=== PATIENT | male | born 1965 | race Caucasian/White ===

== ENCOUNTER 2020-07-05 07:13 | Emergency (ER) | payer OTHER, SELFPAY ==
[2020-07-05] VITALS (34 sets, daily range): BP systolic 109–154; BP diastolic 73–99; PULSE 81–99; RESP 10–21; TEMP 36.5; O2SAT 94–98
--- OUTSIDE RECORDS SUMMARY | 2020-07-05 07:44 | XMS_ITS | Encounter Summary ---
:1965 Author Organization [facility] Address [address] [place] [address] Care Team Providers Name Role Phone BRIDGETTE BRO Primary Care Provider Unavailable BRIDGETTE BRO Primary Care Provider Unavailable Insurance Providers: All historical and current Section Date Range: From patient's date of to the date document was created.This section includes the names of all active insurance providers for the patient. Insurance Type of Plan Start of End of Group Member Insurance Policy P atient's Provider Coverage Name Policy Policy Number ID Provider's Bejarano's Relationship Coverage Coverage Telephone Name to Policy Number Bejarano ANTH HIGH ADP Apr 19, [id number] [phone] [place] NICE PATIENT BCBS OF DEDUCTIBL TOTAL 2018 [id number] K NEW E [facility] PLAN E [place]IGH ADP Apr 19, [id number] [phone] [place] NICE PATIENT (BLUECARD) DEDUCTIBL TOTAL 2019 14 [id number] K E HEALTH SOUR PLAN E W/HEALTH SAVINGS ACCOUNT INGENIO RX PRESCRIPT HP Apr 19, [id number] [phone] MILAGRO COLLADO PATIENT ION (PCN: [id number] K WK) Selected Encounter This section includes the information on record at CT for the Encounter. Date/Time Encounter Type Encounter Reason Provider Source Description Jun 29, 2020 Outpatient MENTAL HEALTH ICD-10-CM RAMIRO YIP 02:00 PM Encounter CLINIC - IND F43.12 A K Post-traumatic stress disorder, chronic with Provider Comments: Chronic post-traumatic stress disorder ([facility] [id number]) IHE Encounter Template Text not used by VA Assessments - Encounter Diagnoses This section includes the primary and secondary diagnoses documented forthe Encounter. Date/Time Primary/Secondary Diagnosis Name Provider Source Diagnosis Jun 29, 2020 PRIMARY Post-traumatic RAMIRO YIPBU [facility] 03:42 PM stress disorder, A K CBOC chronic Jun 29, 2020 SECONDARY Major depressive RAMIRO YIP [place] 03:42 PM disorder, single A K CBOC episode, unspecified Plan of Treatment: Future Appointments (+ 6 months) and Future Tests (+/- 45 days) The Plan of Treatment section includes future care activities for the patient from all [place] treatment facilities. This section includes future appointments and future orders which are active, pending or scheduled.Future Appointments This section includes appointments that were scheduled to occur 6 months from the date of the Encounter, up to a maximum of 20 appointments. [facility] Appointment Date/Time Appointment Type Appointment Facili ty Name Jul 06, 2020 02:00 PM AMBULATORY - PS[facility]CHIATRY [facility] Jul 27, 2020 02:00 PM AMBULATORY - MEDICINE [facility] Jul 27, 2020 04:00 PM AMBULATORY - PSYCHIATRY [facility] Nov 09, 2020 10:00 AM AMBULATORY - MEDICINE [facility] Social History: Smoking Status (Most current) and Tobacco Use (All prior to encounter date) This section includes the most current, and the historical, smoking and tobacco-related health factors from the [place] facility where the Encounter took place.Current Smoking Status This section includes the most current smoking, or tobacco-related health factor, from the [place] facility where the Encounter took place. Date/Time Current Smoking Status Comment Facility Jun 06, 2019 01:09 PM [facility] Tobacco Use History This section includes a history of the smoking, or tobacco-related health factors, that were collected on or before the date of the Encounter. The data comes from the [place] facility where the Encounter took place. Date/Time Smoking Status/Tobacco Use Comment [facility] Jun 30, 2018 02:13 PM VA-TOBACCO NEVER USED [facility] Jun 29, 2015 08:32 AM LIFETIME NON-TOBACCO USER [facility] Sep 09, 2005 03:14 PM QUIT TOBACCO USE > 7 YEARS [facility] quit at age 22 Encounter Notes: All associated encounter notes This section contains the clinical notes associated to the Encounter. Date/Time Encounter Note(s) Provider Source Jun 29, 2020 02:00 PM MENTAL HEALTH COUNSELING NOTE: ANDREINA YIP [facility] LOCAL TITLE: Psychotherapy/Mental Health STANDARD TITLE: MENTAL HEALTH COUNSELING NOTE DATE OF NOTE: JUN 29, 2020@14:00 ENTRY DATE: JUN 29, 2020@15:33:16 AUTHOR: JOON YIP EXP COSIGNER: URGENCY: STATUS: COMPLETED [facility] Video Connect appointment: Provider confirmed that is currently loc ated at the following address listed in their CPRS chart. [address] [place] [address] e-911: Call [phone] to speak with an agent who can put you in touch with a transportation maintenance operator at the Patient's location. Y ou must have the physical location (address) where the Patient is currentl y located. Verbal informed consent has been obtained. Cognitive Processing Therapy: Trauma Event Sessi on Time in session (in minutes): 45 minutes SESSION NUMBER: 5 SESSION FORMAT Video Telehealth Session SESSION LOCATION [place] residence - Other DIAGNOSIS: Primary (focus of treatment): PTSD, MDD ASSESSMENT: PCL-5 A PCL-5 was performed and was negative. The score was 18. PHQ-9 A PHQ-9 screen was performed. The score was 7 which is suggestive of mild depression. CHANGE IN SCORE (PCL or PHQ9) CHANGES IN ASSESSMENT SC ORES FROM EARLIER ADMINISTRATIONS: Scores continue to drop, notes overall feeling better an d more confident in managing stressful thoughts/memories. RISK INFORMATION: Denies current suicidal ideat ion, intent, planning or behaviors. Endorses and family as strong pr otective factors risk is low. SESSION CONTENT: The [place] completed the Trauma Event session of Cognitive Processing Therapy (CPT) for PTSD. The following therapy components were addressed: -Therapist had [place] read the trauma account aloud. [place] shared narrative appropriately. Notes feeling readin g it is easier today since he has reviewed it often. -Therapist helped the Vete ran go through the trauma account to identify stuck points using Socratic Questioning. -Therapist helped [place] connect feelings to thoughts. had difficulty identifying feelings and thoughts i n narrative. -Therapist collected trauma account from Veter an. PRACTICE ASSIGNMENT -Therapist asked [place] to rewrite th e trauma account and to continue using the A-B-C Worksheets, completing at least one each day. PLAN: Cont. CPT sessions weekly, vvc. Denies SI/ HI/, has noted some morbid ruminations at times in the context of distressi ng memories but reports being able to manage feelings and change his focus. A damantly denies any planning, intent or behaviors. Risk is low. RTC 07/06/20 @ 1400 VVC /es/ JEY L[address] Diamond Die Driller Signed: 06/29/2020 15:43 Receipt Acknowledged By: * AWAITING SIGNATURE * KARIN DIAZ * AWAITING SIGNATURE * PEARL GARCIA * AWAITING SIGNATURE * CAROLYNE QUINN
--- OUTSIDE RECORDS SUMMARY | 2020-07-05 07:44 | XMS_ITS ---
:1965 Author Organization [facility] Address [address] [place] [address] Care Team Providers Name Role Phone BRIDGETTE [...] Number Bejarano ANTH HIGH ADP Apr 19, [id number] [phone] [place] NICE PATIENT BCBS OF DEDUCTIBL TOTAL 2019 [id number] K NEW E [facility] PLAN E [place] Apr 19, [id number] [phone] [place] NICE PATIENT (BLUECARD) DEDUCTIBL TOTAL 2019 14 [id number] K E HEALTH SOUR PLAN E W/HEALTH SAVINGS ACCOUNT INGENIO RX PRESCRIPT [facility] Apr 19, [id number] [phone] MILAGRO COLLADO PATIENT ION (PCN: [id number] 6 K WK) Selected Encounter This section includes the information on record at [facility] for the Encounter. Date/Time Encounter Type Encounter Description Reason Provider Source Jun 27, 2020 09:20 Outpatient Encounter ADMIN PAT ACTIVTIES AM (MASNONCT) IHE Encounter Template Text not used by VA Plan of Treatment: Future Appointments (+ 6 months) and Future Tests (+/- 45 days) The Plan of Treatment section includes future care activities for the patient from all [place] treatment facilities. This section includes future appointments and future orders which are active, pending or scheduled.Future Appointments This section includes appointments that were scheduled to occur 6 months from the date of the Encounter, up to a maximum of 20 appointments. The data comes from all [facility]. Appointment Date/Time Appointment Type Appointment Facili ty Name Jun 29, 2020 02:00 PM AMBULATORY - PSYCHIATRY [facility] Jul 06, 2020 02:00 PM AM[facility] [place] [facility] [place] [facility] Jul 27, 2020 02:00 PM AMBULATORY - MEDICINE [facility] Jul 27, 2020 04:00 PM AMBULATORY - PSYCHIATRY [facility] Nov 09, 2020 10:00 AM AMBULATORY - MEDICINE [facility] Social History: Smoking Status (Most current) and Tobacco Use (All prior to encounter date) This section includes the most current, and the historical, smoking and tobacco-related health factors from the [place] facility where the Encounter took place.Current Smoking Status This section includes the most current smoking, or tobacco-related health factor, from the [place] facility where the Encounter took place. Date/Time Current Smoking Status [facility] Aug 15, 2016 03:42 PM LIFETIME NON-TOBACCO USER [facility] Encounter Notes: All associated encounter notes This section contains the clinical notes associated to the Encounter. 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 fax: /es/ NICK TINEO Religious Education Director Signed: 06/27/2020 09:22 Receipt Acknowledged By: 06/27/2020 09:28 /denis/ KUSHAL LUNA RPSGT 06/27/2020 ADDENDUM STATUS: COMPLETED Emailed to [id number] for forwarding. /denis/ KUSHAL LUNA RPSGT Signed: 06/27/2020 09:29 06/27/2020 ADDENDUM STATUS: COMPLETED Document successfully faxed to destination. /denis/ NICK TINEO Religious Education Director Signed: 06/27/2020 09:47
--- OUTSIDE RECORDS SUMMARY | 2020-07-05 07:44 | XMS_ITS | Encounter Summary ---
:1965 Author Organization [facility] Address [address] [place] [address] Care Team Providers Name Role Phone BRIDGETTE [...] Number Bejarano ANTH HIGH ADP Apr 19, [id number] [phone] [place] NICE PATIENT BCBS OF DEDUCTIBL TOTAL 2018 14 [id number] K NEW E [facility] PLAN E [place] ADP Apr 19, [id number] [phone] [place] NICE PATIENT (BLUECARD) DEDUCTIBL TOTAL 2019 14 [id number] K E HEALTH SOUR PLAN E W/HEALTH SAVINGS ACCOUNT INGENIO RX PRESCRIPT HP Apr 19, [id number] [phone] MILAGRO COLLADO PATIENT ION (PCN: [id number] 6 K WK) Selected Encounter This section includes the information on record at [place] for the Encounter. Date/Time Encounter Type Encounter Reason Provider Source Description Jun 01, 2020 Outpatient MENTAL HEALTH ICD-10-CM RAMIRO YIP 02:00 PM Encounter CLINIC - IND F43.12 A K Post-traumatic stress disorder, chronic with Provider Comments: Chronic post-traumatic stress disorder ([facility] [id number]) IHE Encounter Template Text not used by VA Assessments - Encounter Diagnoses This section includes the primary and secondary diagnoses documented forthe Encounter. Date/Time Primary/Secondary Diagnosis Name Provider Source Diagnosis Jun 03, 2020 PRIMARY Post-traumatic FISCAL OFFICER [place]arlon [place] 08:41 AM stress disorder, CBOC chronic Jun 03, 2020 SECONDARY Major depressive [facility] [place] [facility] 08:41 AM disorder, single CBOC episode, unspecified Plan of Treatment: Future Appointments (+ 6 months) and Future Tests (+/- 45 days) The Plan of Treatment section includes future care activities for the patient from all [place] treatment facilities. This section includes future appointments and future orders which are active, pending or scheduled.Future Appointments This section includes appointments that were scheduled to occur 6 months from the date of the Encounter, up to a maximum of 20 appointments. The [facility] [place] [facility] Appointment Date/Time Appointment Type Appointment Facili ty Name Jun 08, 2020 02:00 PM AMBULATORY - [place] [facility] Jun 22, 2020 02:00 PM AMBULATORY - [place] [facility] Jun 29, 2020 02:00 PM AMBULATORY - [place]ATRY [place] [facility] Jul 06, 2020 02:00 PM AMBULATORY - [place]RY [place] [facility] Jul 27, 2020 02:00 PM AM[place]ORY [place]IC[place] [facility] Jul 27, 2020 04:00 PM AMBULATORY - [place]ATRY [place] [facility] Nov 09, 2020 10:00 AM AM[place]ORY [place] [facility] Social History: Smoking Status (Most current) and Tobacco Use (All prior to encounter date) This section includes the most current, and the historical, smoking and tobacco-related health factors from the [place] facility where the Encounter took place.Current Smoking Status This section includes the most current smoking, or tobacco-related health factor, from the [facility] facility where the Encounter took place. Date/Time Current Smoking Status Comment Facility Jun 06, 2019 01:09 PM VA-TOBACCO [facility]ED [facility] Tobacco Use History This section includes a history of the smoking, or tobacco-related health factors, that were collected on or before the date of the Encounter. The data comes from the [place] facility where the Encounter took place. Date/Time Smoking Status/Tobacco Use Comment Facil ity Jun 30, 2018 02:13 PM VA-TOBACCO NEVER USED [facility] Jun 29, 2015 08:32 AM LIFETIME NON-TOBACCO USER [facility] Sep 09, 2005 03:14 PM QUIT TOBACCO USE > 7 YEARS [facility] AGO quit at age 22 Encounter Notes: All associated encounter notes This section contains the clinical notes associated to the Encounter. Date/Time Encounter Note(s) Provider Source Jun 01, 2020 02:00 PM MENTAL HEALTH COUNSELING NOTE: ANDREINA YIP [facility] LOCAL TITLE: Psychotherapy/Mental Health STANDARD TITLE: MENTAL HEALTH COUNSELING NOTE DATE OF NOTE: JUN 01, 2020@14:00 ENTRY DATE: JUN 03, 2020@08:04:57 AUTHOR: JOON YIP EXP COSIGNER: URGENCY: STATUS: COMPLETED [facility] Video Connect appointment: Provider confirmed that [place] is currently loc ated at the following address listed in their CPRS chart. [facility], [place] [address] e-911: Call [phone] to speak with an agent who can put you in touch with a staple shear operator at the Patient's location. Y ou must have the physical location (address) where the Patient is currentl y located. Verbal informed consent has been obtained. Cognitive Processing Therapy: Meaning Session Time in session (in minutes): 55 SESSION NUMBER: 2 SESSION FORMAT Video Telehealth Session SESSION LOCATION [place] residence - Other VVC DIAGNOSIS: Primary (focus of treatment): PTSD ASSESSMENT: MENTAL STATUS/BEHAVIORAL OBSERVATIONS: [place] denies current suicidal ideation, intent , planning or behaviors. Endorses and dog as strong protecti ve factors in addition to help seeking and future orientated planning. Risk is low. SESSION CONTENT: The completed the Meaning of the Event session of Cognitive Processing Therapy (CPT) for PTSD. The followi ng therapy components were addressed: -The and therapist reviewed the Stuck Point Help Sheet and started the Stuck Point Log. -Therapist had [place] read their Impact State ment. -Discussed the meaning of the Impact S tatement with the [place] with a focus on identifying stuck points. -Therapist collected Impact Statement from Karthik weber. -Therapist introduced rela tionships between thoughts, feelings, and behaviors. -Therapist and reviewed the Identifyin g Emotions Handout. -Therapist introduced the A-B-C Worksheets and demonstrated how to complete them in session. PRACTICE ASSIGNMENT: -Therapist assigned practice assignment to com plete at least one A-B-C Worksheet each day. -Therapist asked the [place] to continue to ad d to the Stuck Point Log. PLAN: Weekly CPT sessions vi a VVC. Complete homework assignments and review next session. Denies SI/HI/, risk is low. RTC 06/08/20 @ 1400 VVC Homelessness/Food Insecurity Screen: In the past 2 months, have you been living in stable housing that you own, rent, or stay in as part of a househo ? Yes - Living in stable housing. Are you worried or c oncerned that in the next 2 months you may NOT have stable housing that you own, rent, or st ay in as part of a household? No - Not worried about housing near [facility] In the past three months did you ever run out of food and you were not able to access more food or have the money to buy more food? No - No Food shortage /es/ JOON YIP LOADING RACK SUPERVISOR Cut To Length Operator Signed: 06/03/2020 08:41
--- OUTSIDE RECORDS SUMMARY | 2020-07-05 07:44 | XMS_ITS | Encounter Summary ---
:1965 Author Organization [facility] Address [address] [place] [id number] Care Team Providers Name Role Phone BRIDGETTE [...] Number Bejarano ANTH HIGH ADP Apr 19, [id number] [phone] MIL[place]RO NICE PATIENT BCBS OF DEDUCTIBL TOTAL 2018 14 [id number] K NEW E [facility] PLAN E [place] HIGH ADP Apr 19, [id number] [phone] MILAGRO NICE PATIENT (BLUECARD) DEDUCTIBL TOTAL 2019 14 [id number] 3 K E HEALTH SOUR PLAN E W/HEALTH SAVINGS ACCOUNT INGENIO RX PRESCRIPT HP Apr 19, [id number] [phone] MILAGRO COLLADO PATIENT ION (PCN: [id number] 6 K WK) Selected Encounter This section includes the information on record at [place] for the Encounter. Date/Time Encounter Type Encounter Reason Provider Source Description May 25, 2020 Outpatient MENTAL HEALTH ICD-10-CM RAMIRO YIP 01:00 PM Encounter CLINIC - IND F43.12 A K Post-traumatic stress disorder, chronic with Provider Comments: Chronic post-traumatic stress disorder ([facility] [id number]) IHE Encounter Template Text not used by [facility] Assessments - Encounter Diagnoses This section includes the primary and secondary diagnoses documented forthe Encounter. Date/Time Primary/Secondary Diagnosis Name Provider Source Diagnosis May 25, 2020 PRIMARY Post-traumatic RAMIRO YIPBU RY 01:47 PM stress disorder, A K [facility] chronic May 25, 2020 SECONDARY Major depressive RAMIRO YIP BURY 01:47 PM disorder, single A K [facility] episode, unspecified Plan of Treatment: Future Appointments (+ 6 months) and Future Tests (+/- 45 days) The Plan of Treatment section includes future care activities for the patient from all [place] treatment facilities. This section includes future appointments and future orders which are active, pending or scheduled.Future Appointments This section includes appointments that were scheduled to occur 6 months from the date of the Encounter, up to a maximum of 20 appointments. The [facility] [place] [facility] Appointment Date/Time Appointment Type Appointment Facili ty Name Jun 01, 2020 11:00 AM AMBULATORY [place] [facility] Jun 01, 2020 02:00 PM AM[facility] [place] [facility] Jun 08, 2020 02:00 PM AM[facility] [place] [facility] Jun 22, 2020 02:00 PM AM[facility] [place] [facility] Jun 29, 2020 02:00 PM AM[facility]ORY [place] [facility] Jul 06, 2020 02:00 PM AM[facility]ULATORY [place] [facility] Jul 27, 2020 02:00 PM [place] [facility] Jul 27, 2020 04:00 PM AM[facility]ORY [place] [facility] Nov 09, 2020 10:00 AM [place] [facility] Social History: Smoking Status (Most current) and Tobacco Use (All prior to encounter date) This section includes the most current, and the historical, smoking and tobacco-related health factors from the [facility] facility where the Encounter took place.Current Smoking Status This section includes the most current smoking, or tobacco-related health factor, from the [facility] facility where the Encounter took place. Date/Time Current Smoking Status Comment Facility Jun 06, 2019 01:09 PM VA-TOBACCO NEVER USED [facility] Tobacco Use History This section includes a history of the smoking, or tobacco-related health factors, that were collected on or before the date of the Encounter. The data comes from the [place] facility where the Encounter took place. Date/Time Smoking Status/Tobacco Use Comment Tani mcallister Jun 30, 2018 02:13 PM VA-TOBACCO NEVER USED [facility] Jun 29, 2015 08:32 AM LIFETIME NON-TOBACCO USER [facility] Sep 09, 2005 03:14 PM QUIT TOBACCO USE > 7 YEARS [facility] AGO quit at age 22 Encounter Notes: All associated encounter notes This section contains the clinical notes associated to the Encounter. Date/Time Encounter Note(s) Provider Source May 25, 2020 01:36 PM MENTAL HEALTH COUNSELING NOTE: ANDREINA YIP [facility] LOCAL TITLE: Psychotherapy/Mental Health STANDARD TITLE: MENTAL HEALTH COUNSELING NOTE DATE OF NOTE: MAY 25, 2020@13:36 ENTRY DATE: MAY 25, 2020@13:36:51 AUTHOR: JOON YIP EXP COSIGNER: URGENCY: STATUS: COMPLETED Cognitive Processing Therapy: Initial Session Time in session (in minutes): 45 SESSION NUMBER: 1 SESSION FORMAT Video Telehealth Session SESSION LOCATION [facility] DIAGNOSIS: Primary (focus of treatment): PTSD Secondary (if applicable): MDD ASSESSMENT: Date Instrument Ra w Trans Scale 05/18/2020 10:20 PCL-5 3 9 PCL-5 4 Cluster B 8 Cluster C 1 9 Cluster D 8 Cluster E 10/03/2014 08:15 PC PTSD 2 PC PTSD Total Date Instrument Ra w Trans Scale 05/18/2020 10:20 PHQ9 8 PHQ9 07/03/2017 15:17 PHQ9 3 PHQ9 PCL-5 A PCL-5 was performed and was positive. The score was 47. PHQ-9 A PHQ-9 screen was performed. The score was 7 which is suggestive of mild depression. CHANGE IN SCORE (PCL or PHQ9) CHANGES IN ASSESSMENT SCORES FROM EARLIER AD MINISTRATIONS: Warren reports symptoms have increased since deciding t o address past traumatic experiences. Since I have been thinking about it more, I have noticed I'm more avoidant and hypervigilant RISK INFORMATION: denies current suici [place] ideation, intent, planning or beliefs. Warren endorses past hx o f SI. Does have access to lethal means (firearms) in the home, reports the y are secured safely in the home, no acute safety concerns. Endorsed multip le protective factors. Risk is low. MENTAL STATUS/BEHAVIORAL OBSERVATIONS; engaged , pleasant and alert and oriented x 3 SESSION CONTENT: The completed the first session of Cog nitive Processing Therapy (CPT) for PTSD. The following therapeutic components were addressed: -Facilitated a good therapeutic relationship. The following elements were utilized to help establish a collaborative, po sitive working relationship with the [place]: Discussed barriers and liana rns re; treatment, can end treatment if so desired. -Reviewed and signed treatment agreement conse nt form. -Provided an overview of PTSD symptoms, a cogn itive explanation of the development and maintenance of PTSD, and a rat ionale of CPT. -Presented the with an overview of the 12-session treatment. -Discussed 's readiness to engage in tr eatment. -Discussed and addressed 's questions o r concerns about treatment. expressed the following questions and/ or concerns: what if symptoms get worse Discussed learning adequate coping skills to manage distressing feelings, resources to access formerly named [facility] PTSD college coach trudi and crisis line -Asked the to describe a brief account of their most traumatic event. notes 3 events that he feels acc ount for his trauma. Noted feeling more anxious when discussing these. 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 Notes having intense physical reactions after the events adrenaline dump shaking, crying uncontrollably -Introduced the concept of stuck points. PRACTICE ASSIGNMENT: -Asked to write a one page Impact Sta tement. -Asked to review Stuck Point Handout a nd Stuck Point Help Sheet. PLAN Next session planned for agreed upon date/time of: 06/01/20 @ 1400 [facility] Warren denies SI/HI/, endorses multiple prot ective factors, risk is low. /denis/ JOON YIP FLARER C D Area Supervisor Signed: 05/25/2020 13:47 Receipt Acknowledged By: * AWAITING SIGNATURE * KARIN DIAZ
--- OUTSIDE RECORDS SUMMARY | 2020-07-05 07:44 | XMS_ITS | Encounter Summary ---
:1965 Author Organization [facility] Address [address] [place] [address] Care Team Providers Name Role Phone BRIDGETTE [...] Number Bejarano ANTH HIGH ADP Apr 19, [id number] [phone] MILAGRO NICE PATIENT BCBS OF DEDUCTIBL TOTAL 2018 14 [id number] K NEW E [facility] PLAN [place] Apr 19, [id number] [phone] MIL[place]RO NICE PATIENT (BLUECARD) DEDUCTIBL TOTAL 2019 14 [id number] 3 K E HEALTH [employer] PLAN E W/HEALTH SAVINGS ACCOUNT INGENIO RX PRESCRIPT HP Apr 19, [id number] [phone] MILAGRO COLLADO PATIENT ION (PCN: [id number] 6 K WK) Selected Encounter This section includes the information on record at [place] for the Encounter. Date/Time Encounter Type Encounter Reason Provider Source Description Jun 08, 2020 Outpatient TELEPHONE ICD-10-CM RAMIRO YIP 03:08 PM Encounter F43.12 A K Post-traumatic stress disorder, chronic with Provider Comments: Chronic post-traumatic stress disorder ([facility] [id number]) IHE Encounter Template Text not used by [facility] Assessments - Encounter Diagnoses This section includes the primary and secondary diagnoses documented forthe Encounter. Date/Time Primary/Secondary Diagnosis Name Provider Source Diagnosis Jun 08, 2020 PRIMARY Post-traumatic RAMIRO YIPBU RY 03:08 PM stress disorder, A K [facility] chronic Jun 08, 2020 SECONDARY Major depressive RAMIRO YIP BURY 03:08 PM disorder, single A K [facility] episode, unspecified Plan of Treatment: Future Appointments (+ 6 months) and Future Tests (+/- 45 days) The Plan of Treatment section includes future care activities for the patient from all [place] treatment facilities. This section includes future appointments and future orders which are active, pending or scheduled.Future Appointments This section includes appointments that were scheduled to occur 6 months from the date of the Encounter, up to a maximum of 20 appointments. The [facility] [place] [facility] Appointment Date/Time Appointment Type Appointment Facili ty Name Jun 22, 2020 02:00 PM AM[facility]ORY [place] [facility] Jun 29, 2020 02:00 PM AM[facility] [place] [facility] Jul 06, 2020 02:00 PM AM[facility] [place] [facility] Jul 27, 2020 02:00 PM [place] [facility] Jul 27, 2020 04:00 PM AM[facility] [place] [facility] Nov 09, 2020 10:00 AM [place] [facility] Social History: Smoking Status (Most [...] 06, 2019 01:09 PM VA-TOBACCO NEVER USED [facility] Tobacco Use History This section includes a history of the smoking, or tobacco-related health factors, that were collected on or before the date of the Encounter. The data comes from the [place] facility where the Encounter took place. Date/Time Smoking Status/Tobacco Use Comment Facil it Jun 30, 2018 02:13 PM VA-TOBACCO NEVER USED [facility] Jun 29, 2015 08:32 AM LIFETIME NON-TOBACCO USER [facility] Sep 09, 2005 03:14 PM QUIT [facility] quit at age 22 Encounter Notes: All associated encounter notes This section contains the clinical notes associated to the Encounter. Date/Time Encounter Note(s) Provider Source Jun 08, 2020 03:08 PM MENTAL HEALTH TELEPHONE ENCOUNTER NOTE: JOON COLON [facility] LOCAL TITLE: Telephone Note/Mental Health STANDARD TITLE: MENTAL HEALTH TELEPHONE ENCOUNTE R NOTE DATE OF NOTE: JUN 08, 2020@15:08 ENTRY DATE: JUN 08, 2020@15:08:21 AUTHOR: JOON YIP EXP COSIGNER: URGENCY: STATUS: COMPLETED Visit was completed via phone as this writers VV C was unable to connect Cognitive Processing Therapy: A-B-C Worksheet Se ssion Time in session (in minutes): 45 SESSION NUMBER: 3 SESSION FORMAT Telephone session SESSION LOCATION residence - Other phone DIAGNOSIS: Primary (focus of treatment): PTSD ASSESSMENT: PCL-5 A PCL-5 was performed and was negative. The score was 21. CHANGE IN SCORE (PCL or PHQ9) CHANGES IN ASSESSMENT SCORES FROM EARLIER AD MINISTRATIONS: [place] reports marked relief in symptoms ove r past week as evidenced by scores. RISK INFORMATION: Denies current suicidal idea tion, intent, planning or behaviors. Endorses and family as strong pr otective factors risk is low. SESSION CONTENT: The [place] completed the Thoughts and Feeling s Session of the Cognitive Processing Therapy (CPT) for PTSD. The followi ng therapy components were addressed: -Therapist reviewed homework (A-B-C Worksheets ) with , and helped further differentiate between thoughts and fee lings. -Therapist helped identify stuck point s and add them to the Stuck Point Log. -Therapist helped the [place] to begin to chal lenge problematic thoughts using Socratic Questioning. -Therapist introduced the trauma narrative and discussed the issue of avoidance. PRACTICE ASSIGNMENT -Therapist asked to continue using the A -B-C Worksheets, completing one each day. PLAN Cont. weekly sessions using CPT to reduce sympt oms of PTSD and address avoidance. Denies SI/HI/, risk is low RTC 06/22/20 @ 1400 [facility] /es/ JEY L[address] Manager Water Signed: 06/08/2020 15:15 Receipt Acknowledged By: * AWAITING SIGNATURE * KARIN DIAZ * AWAITING SIGNATURE * PEARL GARCIA * AWAITING SIGNATURE * CAROLYNE QUINN Jun 08, 2020 02:00 PM NO SHOW NOTE: JOON YIP [facility] LOCAL TITLE: Mental Health No Show/Clinic Cance l/Conversion Note STANDARD TITLE: NO SHOW NOTE DATE OF NOTE: JUN 08, 2020@14:00 ENTRY DATE: JUN 08, 2020@15:18:56 AUTHOR: JOON YIP EXP COSIGNER: URGENCY: STATUS: COMPLETED MENTAL HEALTH NO SHOW/CLINIC CANCELLATION/CLINIC CONVERSION NOTE Appointment Date & Time: May@14:00 ACTION: Provider attempted to reach [place] to d iscuss: No Show Cancellation by clinic Cancellation by (X) Conversion of clinic appointment REASON: for no show or clinic cancel/reschedule: Unable to use [facility] converted to phone OUTCOME: Reached and Clinic rescheduled to: [facility] Clinic (X) Telephone Clinic Face to Face Clinic New clinic appointment date/time: 's email address: Left [place] voicemail message: Any Acute Safety Concerns? No If Yes, Action Taken or Further Follow-up: Co-sign MSAs at location to this note to take a ction on the clinic appt and add any additional instructi ons to MSA group. Please cancel [facility] appt as unable to connect, thi s magnetic tape typewriter operator created ALEXANDRA appt for phone 06/08 @ 1400, note/encounter completed. /denis/ JOON YIP GI ASST Manager Water Signed: 06/08/2020 15:20 Receipt Acknowledged By: * AWAITING SIGNATURE * KARIN DIAZ * AWAITING SIGNATURE * PEARL GARCIA * AWAITING SIGNATURE * CAROLYNE QUINN
--- OUTSIDE RECORDS SUMMARY | 2020-07-05 07:44 | XMS_ITS | Encounter Summary ---
:1965 Author Organization Department [facility] rs Address [address] [place] [address] Care Team Providers Name Role Phone BRIDGETTE [...] Number Bejarano ANTH HIGH ADP Apr 19, [id number] [phone] MILAGRO TREVIÑO PATIENT BCBS OF DEDUCTIBL TOTAL 2018 14 [id number] K NEW E [facility]ALTH [facility] PLAN E [place] HIGH ADP Apr 19, [id number] [phone] MILARGO TREVIÑO PATIENT (BLUECARD) DEDUCTIBL TOTAL 2019 14 [id number] K E HEALTH [employer] PLAN E W/HEALTH SAVINGS ACCOUNT INGENIO RX PRESCRIPT HDHP Apr 19, [id number] [phone] MILAGRO COLLADO PATIENT ION (PCN: [id number] K WK) Selected Encounter This section includes the information on record at [place] for the Encounter. Date/Time Encounter Type Encounter Reason Provider Source Description Jun 01, 2020 Outpatient TELEPHONE DARREL ICD-10-CM DOROTHEA ZHU 11:00 AM Encounter F43.12 Post-traumatic stress disorder, chronic with Provider Comments: Chronic post-traumatic stress disorder ([facility] [id number]) IHE Encounter Template Text not used by VA Assessments - Encounter Diagnoses This section includes the primary and secondary diagnoses documented forthe Encounter. Date/Time Primary/Secondary Diagnosis Name Provider Source Diagnosis Jun 01, 2020 PRIMARY Post-traumatic DOROTHEA ZHU 11:00 AM stress disorder, [facility] chronic Jun 01, 2020 SECONDARY Major depressive DOROTHEA ZHU 11:00 AM disorder, single [facility] episode, unspecified Plan of Treatment: Future Appointments (+ 6 months) and Future Tests (+/- 45 days) The Plan of Treatment section includes future care activities for the patient from all [place] treatment facilities. This section includes future appointments and future orders which are active, pending or scheduled.Future Appointments This section includes appointments that were scheduled to occur 6 months from the date of the Encounter, up to a maximum of 20 appointments. The data comes from all [facility]. Appointment Date/Time Appointment Type Appointment Facili ty Name Jun 08, 2020 02:00 PM AMBULATORY - [place] [facility] Jun 22, 2020 02:00 PM AM[facility]ORY [place] [facility] Jun 29, 2020 02:00 PM AMBULATORY - [place] [facility] Jul 06, 2020 02:00 PM AMBULATORY - [place] [facility] Jul 27, 2020 02:00 PM [facility] [place] [facility] Jul 27, 2020 04:00 PM AMBULATORY - [place] [place] [facility] Nov 09, 2020 10:00 AM AMBULATORY - MEDICINE [facility] Social History: Smoking Status (Most [...] place. Date/Time Current Smoking Status Comment Facility Aug 15, 2016 03:42 PM LIFETIME NON-TOBACCO USER [facility]ITE [facility] Encounter Notes: All associated encounter notes This section contains the clinical notes associated to the Encounter. Date/Time Encounter Note(s) Provider Source Jun 01, 2020 11:16 AM MENTAL HEALTH TREATMENT PLAN NOTE: MARKO[facility] LOC[facility] TITLE: Mental Health Treatment Plan [facility] STANDARD TITLE: MENTAL HEALTH TREATMENT PLAN NOT E DATE OF NOTE: JUN 01, 2020@11:16 ENTRY DATE: JUN 01, 2020@11:17:39 AUTHOR: DOROTHEA ZHU EXP COSIGNER: URGENCY: STATUS: COMPLETED DATE/TIME PATIENT ENTERED TREATMENT: 10/23/2014 10:27:27 AM MENTAL HEALTH TREATMENT PLAN - May, @ 11 :16 AM Visit Date: May, @ 11:00 - JODI ROJO MD PH ONE TREATMENT PLAN TYPE: Update PRIMARY CLINIC OR PROGRAM: Outpatient Care CLINICS OR PROGRAMS: Outpatient Care [employer]WR[employer] INSTRUCTOR: DOROTHEA ZHU / DARREL [facility] 1 TEAM MEMBERS: DOROTHEA ZHU: PHYSICIAN JOON YIP: MAINTENANCE COORDINATOR RISK ASSESSMENT (DANGER TO SELF AND OTHERS): Low risk PATIENT'S PERCEPTION OF NEEDS AND PREFERENCES: I need to keep my job PATIENT'S STRENGTHS/ABILITIES: Insightful - aware of illness Expressed desire/motivation for change Employed or has income/benefits Has supportive family and/or friends Capable of [place] Able to maintain IADLs Good Hygiene PATIENT'S BARRIERS TO CARE: none PATIENT PARTICIPATION IN TREATMENT PLANNING: MET WITH PROVIDER. PATIENT AGREED TO PLAN (draft) DISCUSSED. FAMILY PARTICIPATION IN TREATMENT PLANNING: PATIENT'S FAMILY NOT AVAILABLE. MENTAL HEALTH DIAGNOSES AND RELEVANT MEDICAL CON DITIONS: Depressive disorder ([facility] [id number]) Chronic post-traumatic stress disorder ([facility] [id number]) MEDICATIONS: FLUOXETINE HCL 40MG CAP - Sig: TAKE ONE CAPSULE BY MOUTH EVERY DAY FOR DEPRESSION AND ANXIETY - Outpatient - Status : ACTIVE - Refills: 3 - Issued: 03/02/2020 - Last filled: 05/03/2020 - Expires: 03/03/2021 BUSPIRONE HCL 10MG TAB - Sig: TAKE ONE TABLET B Y MOUTH TWICE A DAY FOR ANXIETY - Outpatient - Status: PENDING - Ref ills: N/A - Issued: N/A - Last filled: N/A - Expires: N/A TREATMENT PLAN: PROBLEM: Problem/Need: [DEPRESSION]: I am experi encing depressive symptoms that include: feeli ng down and angry. GOAL: I want to decrease depression and impr ove mood. OBJECTIVE: I will take medications as prescr ibed to feel better in the following areas low mood, ang er/irritability. Improvement will be measured thro [facility] in-office assessment and self-report Projec mike Completion Date: 06/03/2020 INTERVENTION: [MEDICATION MANAGEMENT] My provider will prescribe medication to manage my sy mptoms and monitor my response. Provider Type: P sychiatrist Name: DOROTHEA ZHU: ANNY UPDATED/RESOLVED/INACTIVATED PROBLEMS & COMMENTS : ACTIVE PROBLEM: Problem/Need: [DEPRESSION]: I am experiencing depressive symptoms that include : feeling down and angry. ACTIVE OBJECTIVE: I will take medications as prescribed to feel better in the following areas low mo od, anger/irritability. Improvement will be measur ed through in-office assessment and self-report Comments: HISTORICAL OBJEC TIVE: I will take medications as p rescribed to feel better in the following ar eas low mood, anger/irritabili ty. Improvement will be measured through in-office assessment and self-report. PHQ < 8 06/03/2019 (by DOROTHEA ZHU) HISTORICAL OBJEC TIVE: I will take medications as p rescribed to feel better in the following ar eas low mood, anger/irritabili ty. Improvement will be measured through in-office assessment and self-report. PHQ < 8 06/03/2019 (by DOROTHEA ZHU) HISTORICAL OBJEC TIVE: I will take medications as p rescribed to feel better in the following ar eas low mood, anger/irritabili ty. Improvement will be measured through in-office assessment and self-report. 06/03/2019 (by DOROTHEA ZHU) PLAN RENEWAL DATE: 06/01/2021 /denis/ Dorothea Zhu MD Psychiatrist Signed: 06/01/2020 11:17 Receipt Acknowledged By: * AWAITING SIGNATURE * JOON YIP Jun 01, 2020 10:56 AM MENTAL HEALTH TELEPHONE ENCOUNTER NOTE: DOROTHEA MCKENZIE [facility] LOCAL TITLE: Telephone Note/Mental Health [facility] STANDARD TITLE: MENTAL HEALTH TELEPHONE ENCOUNTE R NOTE DATE OF NOTE: JUN 01, 2020@10:56 ENTRY DATE: JUN 01, 2020@10:56:57 AUTHOR: DOROTHEA ZHU EXP COSIGNER: URGENCY: STATUS: COMPLETED MENTAL HEALTH TELEPHONE NOTE Date and time of visit: JUN 01, 2020 1100 Duration: 16 min IDENTIFICATION: Name: TREVIÑO,SUSU CARMENCITA J R Age: 54 Service connection: SERVICE CONNECTED % - 80 Primary Care Provider: CHIEF COMPLAINT: Follow-up for depression, anxiety, PTSD HISTORY OF PRESENT ILLNESS: Mr. Treviño has in the interim started individual psychotherapy. He has been trying to learn more about P TSD since he has started therapy. he has learned more, he is now seeing more and more sx that he has experienced which he did not recognize before. He reports that he has been doing better. [employer] has been starting to help and he is generally feeling calmer. He has also decided to go to a different job and that decision in and of itself made him feel better. He will be going back to his previous job for the same company and it is reassuring that he kno ws what to expect. That took a lot of stress off of his mind. Severity of stress is n ow minimal. He looks forward to seeing his family in the fut ure. Isolation due to the pandemic has been difficult for them. Side-effects to psychiatric medications: none Review of Systems: Psychiatric: per HPI. Constitutional: Sleep - fine. Energy - okay mo st of the time, dose have occasional day he feels really tired. Appetite - good. MENTAL HEALTH HISTORY: SUBSTANCE USE HISTORY: Recent Use: Alcohol: infrequent Tobacco: none Other Substances: none [place]UM[place]IA SUICIDE SCREEN: Questions applicable to the period of time betwe en visits: 1. No Have you wished you were or wished y ou could go to sleep and not wake up? 2. No Have you actually had any thoughts of kil ling yourself? 6. No Have you done anything, started to do any thing, or prepared to do anything to end your life ? Assessment of Suicide Risk (low, medium, high): Low acute risk based on current report of sympto ms MEDICAL INFORMATION: Active problems - Computerized Problem List is t he source for the followin. Chronic post-traumatic stress disorder 2. Depressive disorder 3. Sleep apnea 4. MDD, Recur, NOS 5. Cough 6. Depressive disorder 7. Egdar Schlatter Disease 8. Hyperlipidemia (SNOMED CT [id number]) 9. Environmental Allergies 10. GERD - Gastro-esophageal reflux disease (SNO MED CT [id number]) RECENT LABORATORY STUDIES: Labs (14 Days) No data available MEDICATIONS: Active Outpatient Medications (excluding Supplie s): Active Outpatient Medications Status 1) ATORVASTATIN CALCIUM 20MG TAB TAKE ONE TABL ET BY ACTIVE MOUTH EVERY DAY TO LOWER CHOLESTEROL 2) BUSPIRONE HCL 10MG TAB TAKE ONE TABLET BY M OUTH TWICE ACTIVE A DAY FOR ANXIETY 3) CAPSAICIN 0.025% CREAM APPLY SMALL AMOUNT T OPICALLY ACTIVE TWICE DAILY NEEDED FOR LOCALIZED PAIN 4) FLUOXETINE HCL 40MG CAP TAKE ONE CAPSULE BY MOUTH ACTIVE EVERY DAY FOR DEPRESSION AND ANXIETY 5) LORATADINE 10MG TAB TAKE ONE TABLET BY MOUT H EVERY ACTIVE DAY FOR ALLERGIES 6) OMEPRAZOLE 20MG EC CAP TAKE ONE CAPSULE BY MOUTH ACTIVE TWICE A DAY FOR GASTROESOPHAGEAL REFLUX D ISEASE MEDICATION RECONCILIATION: Reviewed VA medications and [facility]. Were the medications correct and being taken trudi ropriately? ALLERGIES: SIMVASTATIN MENTAL STATUS EXAM: Appearance: not assessed due to phone visit Behavior: cooperative, engageable, talkative, s ounds brighter Speech: normal rate and volume, clear, coherent , normal prosody Language: fluent Mood/Affect: good; mildly dysthymic, constricted, appropriate, mood congruent affect Thought Processes: linear, logical, goal-direct ed Associations: no loosening Thought Content: no evidence of hallucinations or delusions, denies current suicidal or violent/homicidal ideation Insight: good Judgment: good Gait: not assessed due to phone visit Fund of Knowledge: appropriate Attention/Concentration: Alert and attentive Summary and Diagnostic Impression/Formulation: Mr. Treviño is a 54 yo vet wit h recurrent major depression (mild), anxiety, PTSD. He is doing better today given dissipation of a good part of his external stress. He is hopeful about the future, optimistic about the outcome of trauma focused therapy. TREATMENT PLAN: - cont fluoxetine, buspirone as above - cont individual therapy Follow-up appointment(s): NLT RTC - Jul 27 - 4:00 PM - phone Alcohol Use Screen (AUDIT-C) & F/U: Alcohol Screen: SCREEN FOR ALCOHOL (AUDIT-C) An alcohol screening test (AUDIT-C ) was negative (score=1). 1. How often did you have a drink containing alcohol in the past year? Monthly or less 2. How many drinks containing alco hol did you have on a typical day when you were drinking in the past year? 1 or 2 3. How often did you have six or m ore drinks on one occasion in the past year? Never Date Instrument Raw Trans Scale 06/03/2019 11:00 AUDC 1 Total /es/ Dorothea Zhu MD Psychiatrist Signed: 06/01/2020 11:21
--- OUTSIDE RECORDS SUMMARY | 2020-07-05 07:44 | XMS_ITS | Encounter Summary ---
:1965 Author Organization [facility] Address [address] [place] [address] Care Team Providers Name Role Phone BRIDGETTE [...] Number Bejarano ANTH HIGH ADP Apr 19, [id number] [phone] MILAGRO NICE PATIENT BCBS OF DEDUCTIBL TOTAL 2018 14 [id number] K NEW E [facility]ALTH [facility] PLAN E [place] HIGH ADP Apr 19, [id number] [phone] MILAGRO NICE PATIENT (BLUECARD) DEDUCTIBL TOTAL 2019 14 [id number] K E HEALTH [place] PLAN E W/HEALTH SAVINGS ACCOUNT INGENIO RX PRESCRIPT HP Apr 19, WL9A [id number] [phone] MILAGRO COLLADO PATIENT ION (PCN: [id number] K WK) Selected Encounter This section includes the information on record at [place] for the Encounter. Date/Time Encounter Type Encounter Reason Provider Source Description Jun 22, 2020 Outpatient MENTAL HEALTH ICD-10-CM RAMIRO YIP 02:00 PM Encounter CLINIC - IND F43.12 A K Post-traumatic stress disorder, chronic with Provider Comments: Chronic post-traumatic stress disorder ([facility] [id number]) IHE Encounter Template Text not used by VA Assessments - Encounter Diagnoses This section includes the primary and secondary diagnoses documented forthe Encounter. Date/Time Primary/Secondary Diagnosis Name Provider Source Diagnosis Jun 22, 2020 PRIMARY Post-traumatic RAMIRO YIPBU RY 03:18 PM stress disorder, [facility] chronic Jun 22, 2020 SECONDARY Major depressive RAMIRO YIP BURY 03:18 PM disorder, single [facility] episode, unspecified Plan of Treatment: Future Appointments (+ 6 months) and Future Tests (+/- 45 days) The Plan of Treatment section includes future care activities for the patient from all [place] treatment facilities. This section includes future appointments and future orders which are active, pending or scheduled.Future Appointments This section includes appointments that were scheduled to occur 6 months from the date of the Encounter, up to a maximum of 20 appointments. The [facility] [place] [facility] Appointment Date/Time Appointment Type Appointment Facili ty Name Jun 29, 2020 02:00 PM AMBULATORY - [place] [place] [facility] Jul 06, 2020 02:00 PM AM[facility]AT[facility] - [facility]AT[facility] [place] [facility] Jul 27, 2020 02:00 PM [place] [place] [facility] Jul 27, 2020 04:00 PM AMBUL[facility]ORY - [facility]ATRY [place] [facility] Nov 09, 2020 10:00 AM [facility] [place] [facility] Social History: Smoking Status (Most current) and Tobacco Use (All prior to encounter date) This section includes the most current, and the historical, smoking and tobacco-related health factors from the [place] facility where the Encounter took place.Current Smoking Status This section includes the most current smoking, or tobacco-related health factor, from the [facility] facility where the Encounter took place. Date/Time Current Smoking Status Comment Facility Jun 06, 2019 01:09 PM VA-TOBACCO NEVER USED [facility] Tobacco Use History This section includes a history of the smoking, or tobacco-related health factors, that were collected on or before the date of the Encounter. The data comes from the [place] facility where the Encounter took place. Date/Time Smoking Status/Tobacco Use Comment [facility] Jun 30, 2018 02:13 PM VA-TOBACCO NEVER USED [facility] Jun 29, 2015 08:32 AM LIFETIME NON-TOBACCO USER [facility] Sep 09, 2005 03:14 PM QUIT TOBACCO USE > 7 YEARS [facility] quit at age 22 Encounter Notes: All associated encounter notes This section contains the clinical notes associated to the Encounter. Date/Time Encounter Note(s) Provider Source Jun 22, 2020 02:00 PM MENTAL HEALTH COUNSELING NOTE: ANDREINA YIP [facility] LOCAL TITLE: Psychotherapy/Mental Health STANDARD TITLE: MENTAL HEALTH COUNSELING NOTE DATE OF NOTE: JUN 22, 2020@14:00 ENTRY DATE: JUN 22, 2020@14:56:54 AUTHOR: JOON YIP EXP COSIGNER: URGENCY: STATUS: COMPLETED VA Video Connect appointment: Provider confirmed that is currently loc ated at the following address listed in their CPRS chart. [facility], [place] [address] e-911: Call [phone] to speak with an agent who can put you in touch with a clipper operator at the Patient's location. Y ou must have the physical location (address) where the Patient is currentl y located. Verbal informed consent has been obtained. Cognitive Processing Therapy: A-B-C Worksheet Se ssion Time in session (in minutes): 45 minutes SESSION NUMBER: 4 SESSION FORMAT Video Telehealth Session SESSION LOCATION Other location Specify: home tele DIAGNOSIS: Primary (focus of treatment): ptsd ASSESSMENT: PCL-5 A PCL-5 was performed and was negative. The score was 21. PHQ-9 A PHQ-9 screen was performed. The score was 9 which is suggestive of mild depression. RISK INFORMATION: Denies current suicidal idea tion, intent, planning or behaviors. Endorses and family as strong pr otective factors risk is low. SESSION CONTENT: The completed the Thoughts and Feeling s Session of the Cognitive Processing Therapy (CPT) for PTSD. The followi ng therapy components were addressed: -Therapist reviewed homework (A-B-C Worksheets ) with , and helped further differentiate between thoughts and fee lings. -Therapist helped identify stuck point s and add them to the Stuck Point Log. -Therapist helped the to begin to chal lenge problematic thoughts using Socratic Questioning. -Therapist introduced the trauma narrative and discussed the issue of avoidance. Therapist helped the Golden challenge inaccur ate thoughts about completing the trauma narrative for next session. PRACTICE ASSIGNMENT -Therapist asked Golden to write an account of their most traumatic event in detail. -Therapist asked to continue using the A-B-C Worksheets, completing one each day. PLAN Next session planned for agreed upon date/time of: 06/29/20 @ 1400 [facility] /es/ [address] Health And Safety Trainer Signed: 06/22/2020 15:18 Receipt Acknowledged By: * AWAITING SIGNATURE * KARIN DIAZ * AWAITING SIGNATURE * PEARL GARCIA * AWAITING SIGNATURE * CAROLYNE QUINN
--- OUTSIDE RECORDS SUMMARY | 2020-07-05 07:45 | XMS_ITS | Encounter Summary ---
:1965 Author Organization Department [facility] rs Address [address] [place] [address] Care Team Providers Name Role Phone BRIDGETTE [...] Number Bejarano ANTH HIGH ADP Apr 19, [id number] [phone] MILAGRO NICE PATIENT BCBS OF DEDUCTIBL TOTAL 2018 14 [id number] K NEW E [facility] PLAN E [place] ADP Apr 19, [id number] [phone] MILAGRO NICE PATIENT (BLUECARD) DEDUCTIBL TOTAL 2019 14 [id number] K E HEALTH [place] PLAN E W/HEALTH SAVINGS ACCOUNT INGENIO RX PRESCRIPT HDHP Apr 19, [id number] [phone] MILAGRO COLLADO PATIENT ION (PCN: [id number] K WK) Selected Encounter This section includes the information on record at [facility] for the Encounter. Date/Time Encounter Type Encounter Description Reason Provider Source Mar 02, 2020 09:43 Outpatient Encounter TELEPHONE TRIAGE AM IHE Encounter Template Text not used by VA Plan of Treatment: Future Appointments (+ 6 months) and Future Tests (+/- 45 days) The Plan of Treatment section includes future care activities for the patient from all [place] treatment facilities. This section includes future appointments and future orders which are active, pending or scheduled.Future Appointments This section includes appointments that were scheduled to occur 6 months from the date of the Encounter, up to a maximum of 20 appointments. The data comes from all [facility]. Appointment Date/Time Appointment Type Appointment Facili ty Name May 04, 2020 11:30 AM AMBULATORY [place] [facility] May 11, 2020 10:00 AM [place] [facility] May 18, 2020 10:00 AM AMBULATORY - [place]IATRY [place] [facility] May 25, 2020 01:00 PM AMBULATORY - [place]IATRY [place] [facility] Jun 01, 2020 11:00 AM AMBULATORY - [place]IATRY [place] [facility] Jun 01, 2020 02:00 PM AMBULATORY - [place]IATRY [place] [facility] Jun 08, 2020 02:00 PM AMBULATORY - [place]IATRY [place] [facility] Jun 22, 2020 02:00 PM AMBULATORY - [place]IATRY [place] [facility] Jun 29, 2020 02:00 PM AMBULATORY - [place]IATRY [place] [facility] Jul 06, 2020 02:00 PM AMBULATORY - [place]IATRY [place] [facility] Jul 27, 2020 02:00 PM [place] [facility] Jul 27, 2020 04:00 PM AMBULATORY - PS[place]CHIATRY [place] [facility] Social History: Smoking Status (Most current) [...] 2016 03:42 PM LIFETIME NON-TOBACCO USER [place] [facility] Encounter Notes: All associated encounter notes This section contains the clinical notes associated to the Encounter. Date/Time Encounter Note(s) Provider Source Mar 02, 2020 09:43 AM TELEPHONE ENCOUNTER NOTE: HARRISON ALLEN [place] [facility] LOCAL TITLE: [facility]IS[facility] MED RENEWAL STANDARD TITLE: TELEPHONE ENCOUNTER NOTE DATE OF NOTE: MAR 02, 2020@09:43:45 ENTRY DATE: MAR 02, 2020@09:44:38 AUTHOR: HARRISON ALLEN EXP COSIGNER: URGENCY: STATUS: COMPLETED Type of call: PRESCRIPTION UPDATE. PCMM Provider Info: No PACT assigned at any [place] location. [facility] [phone]: [facility] 1 ([facility]) Psychiatrist Sreedhar Cramer PHONE:[phone] PAGER:[phone] Caller Response: SENT TO SPECIALTY FOR F/U The patient, SUSU NICE JR ([phone]) called the call center. Comments: please renew and mail out FLUOXETINE Evaluation/Management Code: HC PRO PHONE CALL 5- 10 MIN ([phone]). Starting at: 03/02/2020 @ 9:43:45 AM Ending at: 03/02/2020 @ 9:44:18 AM Length: 0 minutes. Author: HARRISON ALLEN Caller Area: [facility] Chief Complaint: Not applicable to call. Class Code: Other specified counseling. Contact Phone Number: Patient's Email Address: /denis/ HARRISON ALLEN Advanced Operator Technician Signed: 03/02/2020 09:44 Receipt Acknowledged By: 03/02/2020 10:00 /denis/ Sreedhar Cramer MD Psychiatrist
--- OUTSIDE RECORDS SUMMARY | 2020-07-05 07:45 | XMS_ITS | Encounter Summary ---
:1965 Author Organization [facility] Address [address] [place] [id number] Care Team Providers Name Role Phone BRIDGETTE RBO Primary Care Provider Unavailable BRIDGETTE BRO Primary [...] Number Bejarano ANTH HIGH ADP Apr 19, [id number] [phone] MIL[place]RO NICE PATIENT BCBS OF DEDUCTIBL TOTAL 2018 14 [id number] K NEW E HEALTH [facility] PLAN E [place]BS [place] HIGH ADP Apr 19 [id number] [phone] MILAGRO NICE PATIENT (BLUECARD) DEDUCTIBL TOTAL 2019 14 [id number] K E HEALTH Contactually PLAN E W/HEALTH SAVINGS ACCOUNT INGENIO RX PRESCRIPT HP Apr 19, [id number] [phone] MILAGRO COLLADO PATIENT ION (PCN: [id number] 6 K WK) Selected Encounter This section includes the information on record at [place] for the Encounter. Date/Time Encounter Type Encounter Reason Provider Source Description May 11, 2020 Outpatient TELEPHONE/MEDICIN ICD-10-CM G47.30 ARTUR STRATTON 10:00 AM Encounter E Sleep apnea, unspecified with Provider Comments: Sleep apnea ([facility] [id number]) IHE Encounter Template Text not used by [facility] Assessments - Encounter Diagnoses This section includes the primary and secondary diagnoses documented forthe Encounter. Date/Time Primary/Secondary Diagnosis Name Provider Source Diagnosis May 11, 2020 PRIMARY Sleep apnea, KUSHAL LUNA 10:00 AM unspecified [facility] Plan of Treatment: Future Appointments (+ 6 months) and Future Tests (+/- 45 days) The Plan of Treatment section includes future care activities for the patient from all [place] treatment facilities. This section includes future appointments and future orders which are active, pending or scheduled.Future Appointments This section includes appointments that were scheduled to occur 6 months from the date of the Encounter, up to a maximum of 20 appointments. The data comes from all [facility]. Appointment Date/Time Appointment Type Appointment Facili ty Name May 18, 2020 10:00 AM AMBULATORY [facility] May 25, 2020 01:00 PM AM[facility]UL[facility] Jun 01, 2020 11:00 AM AM[facility] Jun 01, 2020 02:00 PM AM[facility]UL[facility] Jun 08, 2020 02:00 PM AM[facility] Jun 22, 2020 02:00 PM AM[facility] Jun 29, 2020 02:00 PM AM[facility]ULATORY [facility] Jul 06, 2020 02:00 PM AMBULATORY [facility] Jul 27, 2020 02:00 PM [facility] Jul 27, 2020 04:00 PM AMBULATORY - [facility]RY [facility] Nov 09, 2020 10:00 AM [facility] Social History: Smoking Status (Most [...] 2016 03:42 PM LIFETIME NON-TOBACCO USER [facility] Encounter Notes: All associated encounter notes This section contains the clinical notes associated to the Encounter. Date/Time Encounter Note(s) Provider Source May 11, 2020 10:06 AM PULMONARY TELEPHONE ENCOUNTER NOTE: KUSHAL GARCIA [facility] LOCAL TITLE: Telephone Note/[facility] STANDARD TITLE: PULMONARY TELEPHONE ENCOUNTER NO TE DATE OF NOTE: MAY 11, 2020@10:06 ENTRY DATE: MAY 11, 2020@10:06:58 AUTHOR: KUSHAL LUNA COSIGNER: URGENCY: STATUS: COMPLETED Diagnosis: JOSE Patient report: No complaints. PAP device type: ResMed AirSense 10 auto Pressure settings at download: 7-20 EPR 3 Update pressure settings: n/a Current mask: ResMed AirFit N20 Large Mask history and reason for change: n/a Usage 11/12/2019 - 05/09/2020 Usage days 180/180 days (100%) >= 4 hours 176 days (98%) < 4 hours 4 days (2%) Usage hours 1,256 hours 40 minutes Average usage (total days) 6 hours 59 minutes Average usage (days used) 6 hours 59 minutes Median usage (days used) 6 hours 44 minutes Total used hours (value since last reset - 05/09) 7,181 hours AirSense 10 AutoSet Serial number [id number] Mode AutoSet Min Pressure 7 cmH2O Max Pressure 20 cmH2O EPR Fulltime EPR level 3 Therapy Pressure - cmH2O Median: 10.6 95th percentile: 1 3.1 Maximum: 14.4 Leaks - L/min Median: 3.9 95th percentile: 14.1 Maximum: 24.0 Events per hour AI: 0.4 HI: 0.6 AHI: 1.0 Apnea Index Central: 0.0 Obstructive: 0.4 Unknow n: 0.0 RERA Index 0.1 Vasquez-Mariscal respiration (average duration per night) 0 minutes (0%) Assessment and Plan: [place] has excellent compl iance with minimal leak while achieving therapeutic results. Reminded of inst ructions on filter change schedule, cleaning, supplies, and use of distill ed water. Follow up PRN and annually. /denis/ KUSHAL LUNA RPSGT Signed: 05/11/2020 10:09
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
--- OUTSIDE RECORDS SUMMARY | 2020-07-05 07:45 | XMS_ITS | Encounter Summary ---
:1965 Author Organization [facility] rs Address [address] [place] [address] Care Team Providers Name Role Phone BRIDGETTE [...] Number Bejarano ANTH HIGH ADP Apr 19, [id number] [phone] MILAGRO TREVIÑO PATIENT BCBS OF DEDUCTIBL TOTAL 2018 14 [id number] K NEW E HEALTH [facility] PLAN E BCBS OF [place] HIGH ADP Apr 19 [id number] [phone] MILAGRO TREVIÑO PATIENT (BLUECARD) DEDUCTIBL TOTAL 2019 14 [id number] 3 K E HEALTH [employer] PLAN E W/HEALTH SAVINGS ACCOUNT INGENIO RX PRESCRIPT HDHP Apr 19, WL9A [id number] [phone] MILAGRO COLLADO PATIENT ION (PCN: [id number] 6 K WK) Selected Encounter This section includes the information on record at [place] for the Encounter. Date/Time Encounter Type Encounter Reason Provider Source Description May 04, 2020 Outpatient TELEPHONE ICD-10-CM F33.0 DOROTHEA ZHU 11:30 AM Encounter Major depressive disorder, recurrent, mild with Provider Comments: Major Depressive Disorder, Recurrent, Mild IHE Encounter Template Text not used by [facility] Assessments - Encounter Diagnoses This section includes the primary and secondary diagnoses documented forthe Encounter. Date/Time Primary/Secondary Diagnosis Name Provider Source Diagnosis May 04, 2020 PRIMARY Major depressive ADRIA TEJEDA KETAN ER 11:30 AM disorder, A T [facility] recurrent, mild Plan of Treatment: Future Appointments (+ 6 months) and Future Tests (+/- 45 days) The Plan of Treatment section includes future care activities for the patient from all [place] treatment facilities. This section includes future appointments and future orders which are active, pending or scheduled.Future Appointments This section includes appointments that were scheduled to occur 6 months from the date of the Encounter, up to a maximum of 20 appointments. The data comes from all [facility]. Appointment Date/Time Appointment Type Appointment Facili ty Name May 11, 2020 10:00 AM AMBULATORY [place] [facility] May 18, 2020 10:00 AM AMBULATORY [place] [facility] May 25, 2020 01:00 PM AMBULATORY - [place]ATRY [place] [facility] Jun 01, 2020 11:00 AM AMBULATORY - [place]RY [place] [facility] Jun 01, 2020 02:00 PM AMBULATORY - [place]RY [place] [facility] Jun 08, 2020 02:00 PM AMBULATORY [place]RY [place] [facility] Jun 22, 2020 02:00 PM AMBULATORY - [place]RY [place] [facility] Jun 29, 2020 02:00 PM AMBULATORY - [place]RY [place] [facility] Jul 06, 2020 02:00 PM AMBULATORY [place]RY [place] [facility] Jul 27, 2020 02:00 PM [place] [facility] Jul 27, 2020 04:00 PM AMBULATORY - [place]ATRY [place] [facility] Social History: Smoking Status (Most current) and [...] 03:42 PM LIFETIME NON-TOBACCO USER [place] [facility] Encounter Notes: All associated encounter notes This section contains the clinical notes associated to the Encounter. Date/Time Encounter Note(s) Provider Source May 04, 2020 11:30 AM MENTAL HEALTH TELEPHONE ENCOUNTER NOTE: DOROTHEA MCKENZIE [place] LOCAL TITLE: Telephone Note/Mental Health [facility] STANDARD TITLE: MENTAL HEALTH TELEPHONE ENCOUNTE R NOTE DATE OF NOTE: MAY 04, 2020@11:30 ENTRY DATE: MAY 04, 2020@11:30:24 AUTHOR: DOROTHEA ZHU EXP COSIGNER: URGENCY: STATUS: COMPLETED MENTAL HEALTH TELEPHONE NOTE Date and time of visit: MAY 04, 2020 1130 Duration: 22 min IDENTIFICATION: Name: SUSU TREVIÑO Age: 54 Service connection: SERVICE CONNECTED % - 80 Primary Care Provider: CHIEF COMPLAINT: Follow-up for depression, anxiety HISTORY OF PRESENT ILLNESS: Mr. Treviño reports things are mostly okay though not quite as good as they have been for a while. Recently he has noticed an occasional bad day at work for not a clear reason. 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 When this happens he can't remember very well what happened a fterwards. He can remember physically that his face feels numb, pressure in his head, he does not want to relate to anyone. This has several times over the past co uple of months. He has also talked to his brother who also served in [place]. Mr. Treviño describes a year of low-wells anxiety, being alert, hyperaware for his deployment. I spent sometime normalizing his experiences, acknowledging what he is going through and has gone through. He feels what he e xperiences is more physical and anxious rather than depressed. He does not watch war movies, plans not to watch YouTube videos of similar topics. Side-effects to psychiatric medications: none Review of Systems: Psychiatric: per HPI. MENTAL HEALTH HISTORY: SUBSTANCE USE HISTORY: Recent Use: Alcohol: 1-2 per drinks per month Tobacco: none Other Substances: none COLUMBIA SUICIDE [...] is t he source for the followin. Depressive disorder 2. Sleep apnea 3. MDD, Recur, NOS 4. Cough 5. Depressive disorder 6. [place] Schlatter Disease 7. Hyperlipidemia (SNOMED CT 71761000) 8. Environmental Allergies 9. GERD - Gastro-esophageal reflux disease (SNO MED CT 100308366) RECENT LABORATORY STUDIES: Labs (14 Days) No data available MEDICATIONS: Active Outpatient Medications (excluding Supplie s): Active Outpatient Medications Status 1) ATORVASTATIN CALCIUM 20MG TAB TAKE ONE TABL ET BY ACTIVE (S) MOUTH EVERY DAY TO LOWER CHOLESTEROL 2) CAPSAICIN 0.025% CREAM APPLY SMALL AMOUNT T OPICALLY ACTIVE TWICE DAILY NEEDED FOR LOCALIZED PAIN 3) FLUOXETINE HCL 40MG CAP TAKE ONE CAPSULE BY MOUTH ACTIVE EVERY DAY FOR DEPRESSION AND ANXIETY 4) LORATADINE 10MG TAB TAKE ONE TABLET BY MOUT H EVERY ACTIVE DAY FOR ALLERGIES 5) OMEPRAZOLE 20MG EC CAP TAKE ONE CAPSULE BY MOUTH ACTIVE TWICE A DAY FOR GASTROESOPHAGEAL REFLUX D ISEASE MEDICATION RECONCILIATION: Reviewed VA medications and non-VA medication wi th [place]. Were the medications correct and being taken trudi ropriately? ALLERGIES: SIMVASTATIN MENTAL STATUS EXAM: Appearance: not assessed due to phone visit Behavior: cooperative, engageable, talkative Speech: normal rate and volume, clear, coherent , normal prosody Language: fluent Mood/Affect: a bit anxious, dysthymic, constricted, appropriate, mood congruent affect Thought [...] wit h recurrent major depression (mild), anxiety, trauma or stressor related disorder (r/o PTSD). Today Mr. Treviño brings up low level persistent trauma related sy mptoms that he is embarrassed to be experiencing but which is a very common experience for vets. He will likely respond well to adjusting treatment to better target those. TREATMENT PLAN: - cont fluoxetine as above - discussed pharmacological options for trauma i ncluding change in current antidepressant, augmentation. He preferred to t ry augmentation first as fluoxetine has been helpful for depression (though trauma sx were still present when he took higher doses of fluoxetine) - discussed adding buspirone 10 mg BID, review ed common side-effects and risks and benefits and he consented to trial of that - discussed therapy as anoth er modality to address his sx and he was interested in that - therapy referral to [facility] Follow-up appointment(s): [facility] - Jun 01 - 11: 00 - phone /es/ Dorothea Zhu MD Psychiatrist Signed: 05/04/2020 12:17
--- OUTSIDE RECORDS SUMMARY | 2020-07-05 07:46 | XMS_ITS ---
:1965 Author Organization [facility] rs Address [address] [place] [address] Care Team Providers Name Role Phone BRIDGETTE [...] Number Bejarano ANTH HIGH ADP Apr 19, [id number] [phone] MILAGRO NICE PATIENT BCBS OF DEDUCTIBL TOTAL 2018 14 [id number] K NEW E HEALTH [facility] PLAN E [place] HIGH ADP Apr 19, [id number] [phone] MILAGRO NICE PATIENT (BLUECARD) DEDUCTIBL TOTAL 2018 14 [id number] 3 K E HEALTH [employer] PLAN E W/HEALTH SAVINGS ACCOUNT INGENIO RX PRESCRIPT [facility] Apr 19, WL9A [id number] [phone] MILAGRO COLLADO PATIENT ION (PCN: [id number] 6 K WK) Selected Encounter This section includes the information on record at [place] for the Encounter. Date/Time Encounter Type Encounter Reason Provider Source Description Oct 28, 2019 OFFICE OR OTHER MENTAL HEALTH ICD-10-CM Z00.00 IVA ZHU 11:00 AM OUTPATIENT VISIT CLINIC - IND Encntr for FOR THE general adult EVALUATION AND medical exam w/o MANAGEMENT OF AN abnormal findings ESTABLISHED with Provider PATIENT, THAT MAY Comments: NOT REQUIRE THE Encounter for PRESENCE OF A General Adult PHYSICIAN OR Medical OTHER QUALIFIED Examination HEALTH CARE without Abnormal PROFESSIONAL. Findings USUALLY, THE PRESENTING PROBLEM(S) ARE MINIMAL. TYPICALLY, 5 MINUTES ARE SPENT PERFORMING OR SUPERVISING THESE SERVICES. IHE Encounter Template Text not used by [place] Assessments - Encounter Diagnoses This section includes the primary and secondary diagnoses documented forthe Encounter. Date/Time Primary/Secondary Diagnosis Name Provider Source Diagnosis Nov 15, 2019 PRIMARY Encntr for MANAS [place] 10:45 AM general adult W [facility] medical exam w/o abnormal findings Plan of Treatment: Future Appointments (+ 6 months) and Future Tests (+/- 45 days) The Plan of Treatment section includes future care activities for the patient from all [place] treatment facilities. This section includes future appointments and future orders which are active, pending or scheduled.Future Appointments This section includes appointments that were scheduled to occur 6 months from the date of the Encounter, up to a maximum of 20 appointments. The data comes from all [facility]. Appointment Date/Time Appointment Type Appointment Facili ty Name Nov 11, 2019 11:30 AM AMBULATORY - NONE [facility] December 16, 2019 11:30 AM AMBULATORY - [facility]CHIATRY [facility] Feb 17, 2020 11:30 AM AMBULATORY - PSYCHIATRY [facility] Social History: Smoking Status (Most current) and Tobacco Use (All prior to encounter date) This section includes the most current, and the historical, smoking and tobacco-related health factors from the [place] facility where the Encounter took place.Current Smoking Status This section includes the most current smoking, or tobacco-related health factor, from the [place] facility where the Encounter took place. Date/Time Current Smoking Status Comment Facility Aug 15, 2016 03:42 PM LIFETIME NON-TOBACCO USER [facility] Encounter Notes: All associated encounter notes This section contains the clinical notes associated to the Encounter. Date/Time Encounter Note(s) Provider Source Oct 18, 2019 11:18 AM NO SHOW NOTE: DOROTHEA ZHU [facility] LOCAL TITLE: Mental Health No Show/Clinic Cance l/Conversion Note STANDARD TITLE: NO SHOW NOTE DATE OF NOTE: OCT 18, 2019@11:18 ENTRY DATE: OCT 18, 2019@11:18:08 AUTHOR: DOROTHEA ZHU COSIGNER: URGENCY: STATUS: COMPLETED MENTAL HEALTH NO SHOW/CLINIC CANCELLATION/CLINIC CONVERSION NOTE Appointment Date & Time: Oct@11:00 ACTION: Provider attempted to reach [facility] to d iscuss: No Show Cancellation by clinic Cancellation by [facility] (X) Conversion of clinic appointment REASON: for no show or clinic cancel/reschedule: Coronavirus situation OUTCOME: Reached [facility] and Clinic rescheduled to: [facility] (X) Telephone Clinic Face to Face Clinic New clinic appointment date/time: Oct@11 :00 [facility]'s email address: Left [facility] olga feng ge: left vet a message offering a choice of phone or [facility], also spoke with his who says he'll pro bably get back to me Any Acute Safety Concerns? No If Yes, Action Taken or Further Follow-up: Co-sign MSAs at location to this note to take a ction on the clinic appt and add any additional instructi ons to MSA group. /es/ Dorothea Zhu MD Psychiatrist Signed: 10/19/2019 10:25
--- OUTSIDE RECORDS SUMMARY | 2020-07-05 07:46 | XMS_ITS | Encounter Summary ---
:1965 Author Organization [facility] rs Address [address] [place] [address] Care Team Providers Name Role Phone BRIDGETTE [...] Number Bejarano ANTH HIGH ADP Apr 19, [id number] [phone] MILAGRO TREVIÑO PATIENT BCBS OF DEDUCTIBL TOTAL 2018 14 [id number] K NEW E HEALTH [facility] PLAN E [place] HIGH ADP Apr 19, [id number] [phone] MILAGRO TREVIÑO PATIENT (BLUECARD) DEDUCTIBL TOTAL 2019 14 [id number] K E HEALTH [employer] PLAN E W/HEALTH SAVINGS ACCOUNT INGENIO RX PRESCRIPT [facility] Apr 19, WL9A [id number] [phone] MILAGRO COLLADO PATIENT ION (PCN: [id number] 6 K WK) Selected Encounter This section includes the information on record at [place] for the Encounter. Date/Time Encounter Type Encounter Reason Provider Source Description December 16, 2019 Outpatient TELEPHONE ICD-10-CM F33.42 DOROTHEA ZHU 11:30 AM Encounter Major depressive disorder, recurrent, in full remission with Provider Comments: Major Depressive Disorder, Recurrent, in Full Remission IHE Encounter Template Text not used by [facility] Assessments - Encounter Diagnoses This section includes the primary and secondary diagnoses documented forthe Encounter. Date/Time Primary/Secondary Diagnosis Name Provider Source Diagnosis December 16, 2019 PRIMARY Major depressive MANAS [place] RI GERA 11:30 AM disorder, W T [facility] recurrent, in full remission December 16, 2019 PRIMARY Major depressive MANAS [place] GERA 11:30 AM disorder, W T [facility] recurrent, in full remission December 16, 2019 SECONDARY Anxiety disorder, MANAS [place] IVER 11:30 AM unspecified W [facility] Plan of Treatment: Future Appointments (+ 6 months) and Future Tests (+/- 45 days) The Plan of Treatment section includes future care activities for the patient from all [place] treatment facilities. This section includes future appointments and future orders which are active, pending or scheduled.Future Appointments This section includes appointments that were scheduled to occur 6 months from the date of the Encounter, up to a maximum of 20 appointments. The data comes from all [facility]. Appointment Date/Time Appointment Type Appointment Facili ty Name Feb 17, 2020 11:30 AM AM[place]ULATORY - [place] [facility] May 04, 2020 11:30 AM AMBULATORY - [place]IATRY [place] [facility] May 11, 2020 10:00 AM [place] [facility] May 18, 2020 10:00 AM AMBULATORY - [place]RY [place] [facility] May 25, 2020 01:00 PM AMBULATORY - [place]IATRY [place] [facility] Jun 01, 2020 11:00 AM AMBULATORY - [place]ATRY [place] [facility] Jun 01, 2020 02:00 PM AMBULATORY - [place]IATRY [place] [facility] Jun 08, 2020 02:00 PM AMBULATORY - [place]IATRY [place] [facility] Social History: Smoking Status (Most current) and [...] PM LIFETIME NON-TOBACCO USER [place] [facility] Encounter Notes: All associated encounter notes This section contains the clinical notes associated to the Encounter. Date/Time Encounter Note(s) Provider Source December 16, 2019 11:30 AM MENTAL HEALTH TELEPHONE ENCOUNTER NOTE: D[place]OTHEA [place]CKENZIE [place] LOCAL TITLE: Telephone Note/Mental [facility] STANDARD TITLE: MENTAL HEALTH TELEPHONE ENCOUNTE R NOTE DATE OF NOTE: DECEMBER 16, 2019@11:30 ENTRY DATE: DECEMBER 16, 2019@11:30:33 AUTHOR: DOROTHEA ZHU EXP COSIGNER: URGENCY: STATUS: COMPLETED MENTAL HEALTH TELEPHONE NOTE Date and time of visit: DECEMBER 16, 2019 1130 Duration: 8 min IDENTIFICATION: Name: SUSU TREVIÑO Age: 54 Service connection: SERVICE CONNECTED % - 80 Primary Care Provider: CHIEF COMPLAINT: Follow-up for depression, anxiety HISTORY OF PRESENT ILLNESS: Mr. Treviño reports he is doing pretty good, inna r than last visit when he was feeling pretty anxious but h as gotten through that. Anxiety is much better now. He is feeling much better an d believes previously the worrying was affecting his mood. Summer plans have changed and they have the camp er set up in their yard now. He continues to work and that is going well. Side-effects to psychiatric medications: possibl y eye blinking on occasion Review of Systems: Psychiatric: per HPI. Constitutional: Sleep - just fine. E nergy - better than he has experienced for a while. Appetite - good. Imm: He has had seasonal allergies MENTAL HEALTH HISTORY: SUBSTANCE USE HISTORY: Recent Use: Alcohol: very infrequent 1-2x per month 1-2 drin ks at most Tobacco: none Illicit Substances: none [place]UM[place] SUICIDE SCREEN: Questions applicable [...] NOS 4. Cough 5. Depressive disorder 6. 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 Hyperlipidemia (SNOMED CT [id number]) 8. Environmental Allergies 9. GERD - Gastro-esophageal reflux disease (SNO MED CT 906258654) RECENT LABORATORY STUDIES: Labs (14 Days) No [...] RECONCILIATION: Reviewed VA medications and non-VA medication [facility]. Were the medications correct and being taken trudi ropriately? ALLERGIES: SIMVASTATIN MENTAL STATUS EXAM: Appearance: not assessed due to phone visit Behavior: cooperative, engageable, talkative, i n good spirits Speech: normal rate and volume, clear, coherent , normal prosody Language: fluent Mood/Affect: good; euthymic, full, appropriat e, mood congruent affect Thought Processes: linear, logical, goal-direct ed Associations: no loosening Thought Content: no evidence of hallucinations or delusions, denies current suicidal or violent/homicidal ideation Insight: good Judgment: good Gait: not assessed due to phone visit Fund of Knowledge: appropriate Attention/Concentration: Alert and attentive Summary and Diagnostic Impression/Formulation: Mr. Treviño is a 54 yo vet with recurrent major de pression (full remission), anxiety. He is stable and d oing well at this time. He has adjusted well to the current pandemic and is in a comfortable space n ow. TREATMENT PLAN: - cont fluoxetine as above Follow-up appointment(s): [facility] February 16 - 11:30 - phone /es/ Dorothea Zhu MD Psychiatrist Signed: 12/16/2019 11:42
--- OUTSIDE RECORDS SUMMARY | 2020-07-05 07:46 | XMS_ITS | Encounter Summary ---
:1965 Author Organization [facility] Address [address] [place] [address] Care Team Providers Name Role Phone BRIDGETTE [...] Number Bejarano ANTH HIGH ADP Apr 19, [id number] [phone] MILAGRO NICE PATIENT BCBS OF DEDUCTIBL TOTAL 2018 14 [id number] K NEW E HEALTH [facility] PLAN E [place] HIGH ADP Apr 19, [id number] [phone] MILAGRO NICE PATIENT (BLUECARD) DEDUCTIBL TOTAL 2019 14 [id number] K E HEALTH [employer] PLAN E W/HEALTH SAVINGS ACCOUNT INGENIO RX PRESCRIPT [facility] Apr 19, [id number] [phone] MILAGRO COLLADO PATIENT ION (PCN: [id number] K WK) Selected Encounter This section includes the information on record at [place] for the Encounter. Date/Time Encounter Type Encounter Description Reason Provider Source Nov 11, 2019 12:00 Outpatient Encounter COMMUNITY CARE AM CONSULT IHE Encounter Template Text not used by [facility] Plan of Treatment: Future Appointments (+ 6 months) and Future Tests (+/- 45 days) The Plan of Treatment section includes future care activities for the patient from all [place] treatment facilities. This section includes future appointments and future orders which are active, pending or scheduled.Future Appointments This section includes appointments that were scheduled to occur 6 months from the date of the Encounter, up to a maximum of 20 appointments. The data comes from all [facility]. Appointment Date/Time Appointment Type Appointment Facili ty Name December 16, 2019 11:30 AM AMBULATORY - PS[facility]CHIATRY [facility] Feb 17, 2020 11:30 AM AMBULATORY - PSYCHIATRY [facility] May 04, 2020 11:30 AM AMBULATORY - PSYCHIATRY [facility] May 11, 2020 10:00 AM AMBULATORY - MEDICINE [facility] Social History: Smoking Status (Most current) and Tobacco Use (All prior to encounter date) This section includes the most current, and the historical, smoking and tobacco-related health factors from the [place] facility where the Encounter took place.Current Smoking Status This section includes the most current smoking, or tobacco-related health factor, from the [place] facility where the Encounter took place. Date/Time Current Smoking Status Comment Facility Aug 15, 2016 03:42 PM LIFETIME NON-TOBACCO USER [facility] Encounter Notes: All associated encounter notes This section contains the clinical notes associated to the Encounter. Date/Time Encounter Note(s) Provider Source Nov 11, 2019 12:00 AM NONVA CONSULT: EBONY ARSHAD [facility] LOCAL TITLE: COMMUNITY CARE CONSULT RESULT NOTE STANDARD TITLE: NONVA CONSULT DATE OF NOTE: NOV 11, 2019 ENTRY DATE: FEB 03, 2020@14:55:35 AUTHOR: EBONY ARSHAD EXP COSIGNER: URGENCY: STATUS: COMPLETED VistA Imaging - Scanned Document /denis/ EBONY ARSHAD Specialist Public Opinion Survey Taker Signed: 02/06/2020 07:12
--- OUTSIDE RECORDS SUMMARY | 2020-07-05 07:46 | XMS_ITS | Encounter Summary ---
:1965 Author Organization [facility] rs Address [address] [place] [address] Care Team Providers Name Role Phone BRIDGETTE [...] Number Bejarano ANTH HIGH ADP Apr 19, [id number] [phone] MILAGRO TREVIÑO PATIENT BCBS OF DEDUCTIBL TOTAL 2018 14 [id number] K NEW E [facility] PLAN E [place] HIGH ADP Apr 19, [id number] [phone] MILAGRO TREVIÑO PATIENT (BLUECARD) DEDUCTIBL TOTAL 2019 14 [id number] 3 K E HEALTH [email or web address] PLAN E W/HEALTH SAVINGS ACCOUNT INGENIO RX PRESCRIPT HDHP Apr 19, WL9A [id number] [phone] MILAGRO COLLADO PATIENT ION (PCN: [id number] 6 K WK) Selected Encounter This section includes the information on record at [place] for the Encounter. Date/Time Encounter Type Encounter Reason Provider Source Description Oct 28, 2019 Outpatient TELEPHONE ICD-10-CM F33.41 DOROTHEA ZHU 11:00 AM Encounter Major depressive disorder, recurrent, in partial remission with Provider Comments: Major Depressive Disorder, Recurrent, in Partial Remission IHE Encounter Template Text not used by VA Assessments - Encounter Diagnoses This section includes the primary and secondary diagnoses documented forthe Encounter. Date/Time Primary/Secondary Diagnosis Name Provider Source Diagnosis Oct 28, 2019 PRIMARY Major depressive MANAS [place]HE[place] RI GERA 11:00 AM disorder, [place] [facility] recurrent, in partial remission Oct 28, 2019 PRIMARY Major depressive MANAS [place] GERA 11:00 AM disorder, [place] [facility] recurrent, in partial remission Oct 28, 2019 PRIMARY Major depressive MANAS [place] GERA 11:00 AM disorder, single [place] VAOC episode, unspecified Oct 28, 2019 SECONDARY Anxiety disorder, MANAS ECHEVERRIA R IVER 11:00 AM unspecified W T [facility] Oct 28, 2019 SECONDARY Anxiety disorder, MANAS [place]HE[place]A R IVER 11:00 AM unspecified W T [facility] Oct 28, 2019 SECONDARY Anxiety disorder, MANAS [place]HEVERRIA R IVER 11:00 AM unspecified W T [facility] Oct 28, 2019 SECONDARY Other custodial MANAS ECHEVERRIA KETAN ER 11:00 AM (current) drug W [facility] therapy Plan of Treatment: Future Appointments (+ 6 months) and Future Tests (+/- 45 days) The Plan of Treatment section includes future care activities for the patient from all [place] treatment facilities. This section includes future appointments and future orders which are active, pending or scheduled.Future Appointments This section includes appointments that were scheduled to occur 6 months from the date of the Encounter, up to a maximum of 20 appointments. The data comes from all [facility]. Appointment Date/Time Appointment Type Appointment Facili ty Name Nov 11, 2019 11:30 AM [place] [facility] December 16, 2019 11:30 AM [place] [facility] Feb 17, 2020 11:30 AM AM[place]UL[place]ORY [place] [facility] Social History: Smoking Status (Most [...] 2016 03:42 PM LIFETIME NON-TOBACCO USER [facility] Encounter Notes: All associated encounter notes This section contains the clinical notes associated to the Encounter. Date/Time Encounter Note(s) Provider Source Oct 28, 2019 10:53 AM MENTAL HEALTH TELEPHONE ENCOUNTER NOTE: DOROTHEA MCKENZIE [facility] LOCAL TITLE: Telephone Note/Mental Health [facility] STANDARD TITLE: MENTAL HEALTH TELEPHONE ENCOUNTE R NOTE DATE OF NOTE: OCT 28, 2019@10:53 ENTRY DATE: OCT 28, 2019@10:53:10 AUTHOR: DOROTHEA ZHU COSIGNER: URGENCY: STATUS: COMPLETED MENTAL HEALTH TELEPHONE NOTE Date and time of visit: OCT 28, 2019 1100 Duration: 9 min IDENTIFICATION: Name: SUSU TREVIÑO Age: 53 Service connection: SERVICE CONNECTED % - 80 Primary Care Provider: BRIDGETTE BRO F *WH* CHIEF COMPLAINT: Follow-up for depression, anxiety HISTORY OF PRESENT ILLNESS: Mr. Treviño reports doing mostly okay. Occasion ally he feels exactly like he did when in the [facility] - constant on edge, low grade fear, anxiety. He feels he is managing. First thing in the AM is usually worse and gets better as the day progresses. It can happen multi ple days. It helps that everyone else is feeling the same way to some extent. 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 Only a few people go to work each day. They s [place] home and only go out when needed for groceries. That is okay as he is that way by nature. Side-effects to psychiatric medications: none Review of Systems: Psychiatric: per HPI. Constitutional: Sleep - nor mal. Energy - sometimes tired in the day. Appetite - maybe a little less than usual. MENTAL HEALTH HISTORY: SUBSTANCE USE HISTORY: Recent Use: Alcohol: very occasionally Tobacco: none Illicit Substances: none COLUMBIA SUICIDE [...] NOS 4. Cough 5. Depressive disorder 6. [place] Schlatter Disease 7. Hyperlipidemia (SNOMED CT 74528188) 8. Environmental Allergies 9. GERD - Gastro-esophageal reflux disease (SNO MED CT 386844345) RECENT LABORATORY STUDIES: Labs (14 Days) No [...] VA medications and non-VA medication wi th . Were the medications correct and being taken trudi ropriately? ALLERGIES: SIMVASTATIN MENTAL STATUS EXAM: Appearance: not assessed due to phone visit Behavior: cooperative, engageable, talkative Speech: normal rate and volume, clear, coherent , normal prosody Language: fluent Mood/Affect: mostly okay; mildly dysthymic, c onstricted, appropriate, mood congruent affect Thought Processes: linear, logical, goal-direct ed Associations: no loosening Thought Content: no evidence of hallucinations or delusions, denies current suicidal or violent/homicidal ideation Insight: good Judgment: good Gait: not assessed due to phone visit Fund of Knowledge: appropriate Attention/Concentration: Alert and attentive Summary and Diagnostic Impression/Formulation: Mr. Treviño is a 53 yo vet with recurrent major de pression (partial remission), anxiety. He is experiencing some increased anxiety but understandably so given current situation. He feels his symptom s are manageable and no different than what others feel so it is reasonable to continue with the current treatment plan. TREATMENT PLAN: - cont fluoxetine as above - he prefers to not make changes right now Follow-up appointment(s): [facility] December 15 - 11:30 phone /es/ Dorothea Zhu MD Psychiatrist Signed: 10/28/2019 11:12
--- OUTSIDE RECORDS SUMMARY | 2020-07-05 07:46 | XMS_ITS | Encounter Summary ---
:1965 Author Organization [facility] Address [address] [place] [id number] Care Team Providers Name Role Phone BRIDGETTE [...] Number Bejarano ANTH HIGH ADP Apr 19, [id number] [phone] MILAGRO NICE PATIENT BCBS OF DEDUCTIBL TOTAL 2018 14 [id number] K NEW E [facility]ALTH [facility] PLAN E [place] ADP Apr 19, [id number] [phone] MILAGRO NICE PATIENT (BLUECARD) DEDUCTIBL TOTAL 2019 14 [id number] 3 K E HEALTH [employer] PLAN E W/HEALTH SAVINGS ACCOUNT INGENIO RX PRESCRIPT HP Apr 19, WL9A [id number] [phone] MILAGRO COLLADO PATIENT ION (PCN: [id number] 6 K WK) Selected Encounter This section includes the information on record at [place] for the Encounter. Date/Time Encounter Type Encounter Reason Provider Source Description Oct 28, 2019 Outpatient TELEPHONE/MEDICIN ICD-10-CM G47.33 SANTINO LUNA 01:00 PM Encounter E Obstructive sleep apnea (adult) (pediatric) with Provider Comments: Obstructive Sleep Apnea (Adult) (Pediatric) IHE Encounter Template Text not used by CT Assessments - Encounter Diagnoses This section includes the primary and secondary diagnoses documented forthe Encounter. Date/Time Primary/Secondary Diagnosis Name Provider Source Diagnosis Oct 28, 2019 PRIMARY Obstructive sleep BRITTON LYON 01:00 PM apnea (adult) E I [facility] (pediatric) Plan of Treatment: Future Appointments (+ 6 [...] appointments. [facility] Appointment Date/Time Appointment Type Appointment Facili ty Name Nov 11, 2019 11:30 AM AMBULATORY - NONE [facility] December 16, 2019 11:30 AM AMBULATORY - PSYCHIATRY [facility] Feb 17, 2020 11:30 AM AMBULATORY - PSYCHIATRY [facility] Social History: Smoking Status (Most [...] 03:42 PM LIFETIME NON-TOBACCO USER [facility] Encounter Notes: All associated encounter notes This section contains the clinical notes associated to the Encounter. Date/Time Encounter Note(s) Provider Source Oct 28, 2019 01:06 PM PULMONARY TELEPHONE ENCOUNTER NOTE: KUSHAL GARCIA [facility] LOCAL TITLE: Telephone Note/Sleep Medicine STANDARD TITLE: PULMONARY TELEPHONE ENCOUNTER NO TE DATE OF NOTE: OCT 28, 2019@13:06 ENTRY DATE: OCT 28, 2019@13:06:42 AUTHOR: KUSHAL LUNA COSIGNER: URGENCY: STATUS: COMPLETED Diagnosis: JOSE Patient report: No complaints. PAP device type: ResMed AirSense 10 auto Pressure settings at download: 7-20 EPR 3 Update pressure settings: n/a Current mask: ResMed AirFit N20 Large Mask history and reason for change: n/a Usage 10/28/2018 - 10/27/2019 Usage days 363/365 days (99%) >= 4 hours 358 days (98%) < 4 hours 5 days (1%) Usage hours 2,481 hours 35 minutes Average usage (total days) 6 hours 48 minutes Average usage (days used) 6 hours 50 minutes Median usage (days used) 6 hours 38 minutes Total used hours (value since last reset - 10/26) 5,831 hours AirSense 10 AutoSet Serial number [id number] Mode AutoSet Min Pressure 7 cmH2O Max Pressure 20 cmH2O EPR Fulltime EPR level 3 Therapy Pressure - cmH2O Median: 10.7 95th percentile: 1 3.2 Maximum: 14.5 Leaks - L/min Median: 1.7 95th percentile: 8.1 M aximum: 16.4 Events per hour AI: 0.4 HI: 0.5 AHI: 0.9 Apnea Index Central: 0.0 Obstructive: 0.3 Unknow n: 0.0 RERA Index 0.1 Vasquez-Mariscal respiration (average duration per night) 0 minutes (0%) Assessment and Plan: Excellent compliance with m inimal leak achieving therapeutic results. Remind ed to change his filter monthly. Follow up PRN and annually. /denis/ KUSHAL LUNA RPSGT Signed: 10/28/2019 13:11
--- OUTSIDE RECORDS SUMMARY | 2020-07-05 07:46 | XMS_ITS | Encounter Summary ---
:1965 Author Organization [facility] rs Address [address] [place] [address] Care Team Providers Name Role Phone BRIDGETTE [...] Number Bejarano ANTH HIGH ADP Apr 19, [id number] [phone] MILAGRO TREVIÑO PATIENT BCBS OF DEDUCTIBL TOTAL 2018 14 [id number] K NEW E [facility] PLAN E [place] Apr 19, [id number] [phone] MILAGRO TREVIÑO PATIENT (BLUECARD) DEDUCTIBL TOTAL 2019 14 [id number] K E HEALTH [employer] PLAN E W/HEALTH SAVINGS ACCOUNT INGENIO RX PRESCRIPT HDHP Apr 19, WL9A [id number] [phone] MILAGRO COLLADO PATIENT ION (PCN: [id number] 6 K WK) Selected Encounter This section includes the information on record at [place] for the Encounter. Date/Time Encounter Type Encounter Reason Provider Source Description Feb 17, 2020 Outpatient TELEPHONE ICD-10-CM F33.42 DOROTHEA ZHU 11:30 AM Encounter Major depressive disorder, recurrent, in full remission with Provider Comments: Major Depressive Disorder, Recurrent, in Full Remission IHE Encounter Template Text not used by VA Assessments - Encounter Diagnoses This section includes the primary and secondary diagnoses documented forthe Encounter. Date/Time Primary/Secondary Diagnosis Name Provider Source Diagnosis Feb 17, 2020 PRIMARY Major depressive MANAS [place] RI GERA 11:30 AM disorder, [place] [facility] recurrent, in full remission Feb 17, 2020 PRIMARY Major depressive MANAS [place] RI GERA 11:30 AM disorder, [facility], in partial remission Feb 17, 2020 SECONDARY Anxiety disorder, MANAS ECHEVERRIA R IVER 11:30 AM unspecified W T [facility] Plan of Treatment: Future Appointments (+ 6 months) and Future Tests (+/- 45 days) The Plan of Treatment section includes future care activities for the patient from all [place] treatment facilities. This section includes future appointments and future orders which are active, pending or scheduled.Future Appointments This section includes appointments that were scheduled to occur 6 months from the date of the Encounter, up to a maximum of 20 appointments. The data comes from all [facility]. Appointment Date/Time Appointment Type Appointment Facili ty Name May 04, 2020 11:30 AM AM[place]ORY [place] May 11, 2020 10:00 AM [place] [facility] May 18, 2020 10:00 AM AM[facility] - [place] [facility] May 25, 2020 01:00 PM [facility] - [place] [facility] [facility] Jun 01, 2020 11:00 AM AM[facility]ORY - [place] [facility] Jun 01, 2020 02:00 PM AM[facility] - [place] [facility] Jun 08, 2020 02:00 PM AM[facility] - [facility]AT[facility] [place] [facility] Jun 22, 2020 02:00 PM [facility] - [facility]AT[facility] [place] [facility] Jun 29, 2020 02:00 PM AM[facility] - [place]ATRY [place] [facility] Jul 06, 2020 02:00 PM AM[facility] - [place] [place] [facility] [facility] Jul 27, 2020 02:00 PM [place] [facility] Jul 27, 2020 04:00 PM AM[place] [place] [facility] Social History: Smoking Status (Most current) and Tobacco Use (All prior to encounter date) This section includes the most current, and the historical, smoking and tobacco-related health factors from the [facility] facility where the Encounter took place.Current Smoking Status This section includes the most current smoking, or tobacco-related health factor, from the [place] facility where the Encounter took place. Date/Time Current Smoking Status Comment Facility Aug 15, 2016 03:42 PM LIFETIME NON-TOBACCO USER [facility] Encounter Notes: All associated encounter notes This section contains the clinical notes associated to the Encounter. Date/Time Encounter Note(s) Provider Source Feb 17, 2020 11:23 AM MENTAL HEALTH TELEPHONE ENCOUNTER NOTE: DOROTHEA MCKENZIE LOCAL TITLE: Telephone Note/Mental Health [facility] STANDARD TITLE: MENTAL HEALTH TELEPHONE ENCOUNTE R NOTE DATE OF NOTE: FEB 17, 2020@11:23 ENTRY DATE: FEB 17, 2020@11:24:03 AUTHOR: DOROTHEA ZHU COSIGNER: URGENCY: STATUS: COMPLETED MENTAL HEALTH TELEPHONE NOTE Date and time of visit: FEB 17, 2020 1130 Duration: 8 min IDENTIFICATION: Name: SUSU TREVIÑO Age: 54 Service connection: SERVICE CONNECTED % - 80 Primary Care Provider: CHIEF COMPLAINT: Follow-up for depression, anxiety HISTORY OF PRESENT ILLNESS: Mr. Treviño reports he has bee n doing okay. He does still have spells that come and go when he feels anxious . It is better the less he watches the news or goes out in public. It is triggered by the u nknown in the world and notes a lot of his friends and family feel the same way. He continues to work. That has also been a bit of a source of worry. They are in the midst of a 3 week mynor tdown due to economic changes related to COVID. It doesn't bother him a lot as he has no control ov er that and he can always go back to his previous line of work. They have been able to go camping. Side-effects to psychiatric medications: none Review of Systems: Psychiatric: per HPI. Constitutional: Sleep - good. Energy - good. Appetite - good. MENTAL HEALTH HISTORY: SUBSTANCE USE HISTORY: Recent Use: Alcohol: social - 1-2 drinks per month Tobacco: none Illicit Substances: none [place] SUICIDE [...] Edgar Schlatter Disease 7. Hyperlipidemia (SNOMED CT 94350693) 8. Environmental Allergies 9. GERD - Gastro-esophageal reflux disease (SNO MED CT 442559301) RECENT LABORATORY STUDIES: Labs (14 Days) No [...] coherent , normal prosody Language: fluent Mood/Affect: pretty good; euthymic, full, appropriate, mood congruent affect Thought Processes: linear, [...] major de pression (full remission), anxiety. He seems stable and to be doing well a t this time. He has adjusted appropriately to the pandemic and his worries ar e appropriate for the circumstances. TREATMENT PLAN: - cont fluoxetine as above Follow-up appointment(s): [facility] Oct - 11:30 - phone /es/ Dorothea Zhu MD Psychiatrist Signed: 02/17/2020 11:41
--- OUTSIDE RECORDS SUMMARY | 2020-07-05 07:46 | XMS_ITS | Encounter Summary ---
:1965 Author Organization Department [facility] rs Address [address] [place] [address] Care Team Providers Name Role Phone BRIDGETTE [...] Number Bejarano ANTH HIGH ADP Apr 19, [id number] [phone] MILAGRO NICE PATIENT BCBS OF DEDUCTIBL TOTAL 2018 14 [id number] K NEW E [facility]ALTH [facility] PLAN E [place] Apr 19, [id number] [phone] MILAGRO NICE PATIENT (BLUECARD) DEDUCTIBL TOTAL 2019 14 [id number] 3 K E HEALTH [employer] PLAN E W/HEALTH SAVINGS ACCOUNT INGENIO RX PRESCRIPT HDHP Apr 19, [id number] [phone] MILAGRO COLLADO PATIENT ION (PCN: [id number] 6 K WK) Selected Encounter This section includes the information on record at [facility] for the Encounter. Date/Time Encounter Type Encounter Description Reason Provider Source Mar 02, 2020 09:41 Outpatient Encounter TELEPHONE TRIAGE AM IHE Encounter Template Text not used by [facility] Plan of Treatment: Future Appointments (+ 6 months) and Future Tests (+/- 45 days) The Plan of Treatment section includes future care activities for the patient from all [place] treatment facilities. This section includes future appointments and future orders which are active, pending or scheduled.Future Appointments This section includes appointments that were scheduled to occur 6 months from the date of the Encounter, up to a maximum of 20 appointments. The data comes from all [facility]. Appointment Date/Time Appointment Type Appointment Facili ty Name May 04, 2020 11:30 AM AM[facility]ORY [place] [facility] May 11, 2020 10:00 AM [place] [facility] May 18, 2020 10:00 AM AM[facility] - [place] [facility] [facility] May 25, 2020 01:00 PM AM[facility] - [place]AT[place] [facility] [facility] Jun 01, 2020 11:00 AM AM[facility]ATORY - [place] [facility] Jun 01, 2020 02:00 PM AM[facility]ATORY - [place] [facility] [facility] Jun 08, 2020 02:00 PM AM[facility]ORY - [place]RY [place] [facility] [facility] Jun 22, 2020 02:00 PM AM[facility]ORY - [place]RY [place] [facility] [facility] Jun 29, 2020 02:00 PM AM[facility] - [place] [facility] [facility] Jul 06, 2020 02:00 PM AM[facility]ORY - [place]ATRY [place] [facility] [facility] Jul 27, 2020 02:00 PM [place] [facility] Jul 27, 2020 04:00 PM AM[facility]ORY - [place]ATRY [place] [facility] [facility] Social History: Smoking [...] PM LIFETIME NON-TOBACCO USER [place] [facility] Encounter Notes: All associated encounter notes This section contains the clinical notes associated to the Encounter. Date/Time Encounter Note(s) Provider Source Mar 02, 2020 09:41 AM TELEPHONE ENCOUNTER NOTE: HARRISON ALLEN [place] [facility] LOCAL TITLE: VISN 1 [facility] MED RENEWAL STANDARD TITLE: TELEPHONE ENCOUNTER NOTE DATE OF NOTE: MAR 02, 2020@09:41:03 ENTRY DATE: MAR 02, 2020@09:43:30 AUTHOR: HARRISON ALLEN EXP COSIGNER: URGENCY: STATUS: COMPLETED Type of call: PRESCRIPTION UPDATE. Caller Response: SENT TO PACT The patient, SUSU NICE JR ([phone]) called the call center. Comments: please renew and mail out OMEPRAZOLE and just re new ATORVASTATIN Evaluation/Management Code: HC PRO PHONE CALL 5- 10 MIN ([phone]). Starting at: 03/02/2020 @ 9:41:03 AM Ending at: 03/02/2020 @ 9:42:26 AM Length: 1 minutes. Author: HARRISON ALLEN Caller Area: [facility] Chief Complaint: Not applicable to call. Class Code: Other specified counseling. Contact Phone Number: Patient's Email Address: /denis/ HARRISON ALLEN [employer] Signed: 03/02/2020 09:43 Receipt Acknowledged By: 03/02/2020 12:31 /es/ HOLLIE LEIGH P, EDUCATIONAL RECRUITER- NURSE PRACTITIONER 03/02/2020 10:07 /es/ WANDA FLOWERS Registered Nurse
--- OUTSIDE RECORDS SUMMARY | 2020-07-05 07:47 | XMS_ITS ---
:1965 Author Organization [facility] Address [address] [place] [address] Care Team Providers Name Role Phone BRIDGETTE [...] Number Bejarano ANTH HIGH ADP Apr 19, [id number] [phone] MILAGRO TREVIÑO PATIENT BCBS OF DEDUCTIBL TOTAL 2018 14 [id number] K NEW E HEALTH [facility] PLAN E BCBS OF [place] HIGH ADP Apr 19, [id number] [phone] MILAGRO TREVIÑO PATIENT (BLUECARD) DEDUCTIBL TOTAL 2018 14 [id number] K E HEALTH [employer] PLAN E W/HEALTH SAVINGS ACCOUNT INGENIO RX PRESCRIPT [facility] Apr 19, [id number] [phone] MILAGRO COLLADO PATIENT ION (PCN: [id number] 6 K WK) Selected Encounter This section includes the information on record at [place] for the Encounter. Date/Time Encounter Type Encounter Reason Provider Source Description Sep 02, 2019 OFFICE OR OTHER MENTAL HEALTH ICD-10-CM F33.42 IVA ZHU 11:00 AM OUTPATIENT VISIT CLINIC - IND Major depressive FOR THE EVALUATION disorder, AND MANAGEMENT OF recurrent, in AN ESTABLISHED full remission PATIENT, WHICH with Provider REQUIRES AT LEAST Comments: 2 OF THESE 3 BOWMAN MDD,Recurrent COMPONENTS: AN Episode,In Full EXPANDED PROBLEM Remission FOCUSED HISTORY; AN EXPANDED PROBLEM FOCUSED EXAMINATION; MEDICAL DECISION MAKING OF LOW COMPLEXITY. COUNSELING AND COORDINATION OF CARE WITH OTHER PHYSICIANS, OTHER QUALIFIED HEALTH LAND SURVEYOR MANAGER, OR AGENCIES ARE PROVIDED CONSISTENT WITH THE NATURE OF THE PROBLEM(S) AND THE PATIENT'S AND/OR FAMILY'S NEEDS. USUALLY, THE PRESENTING PROBLEM(S) ARE OF LOW TO MODERATE SEVERITY. TYPICALLY, 15 MINUTES ARE SPENT [id number] WITH THE PATIENT AND/OR FAMILY. IHE Encounter Template Text not used by [place] Assessments - Encounter Diagnoses This section includes the primary and secondary diagnoses documented forthe Encounter. Date/Time Primary/Secondary Diagnosis Name Provider Source Diagnosis Sep 02, 2019 PRIMARY Major depressive NIKHILADRIA KETAN [facility] 11:07 AM disorder, A [facility] recurrent, in full remission Plan of Treatment: Future Appointments (+ 6 months) and Future Tests (+/- 45 days) The Plan of Treatment section includes future care activities for the patient from all [place] treatment facilities. This section includes future appointments and future orders which are active, pending or scheduled.Future Appointments This section includes appointments that were scheduled to occur 6 months from the date of the Encounter, up to a maximum of 20 appointments. The data comes [facility] [place] [facility] Appointment Date/Time Appointment Type Appointment Facili ty Name Oct 28, 2019 11:00 AM AMBULATORY - PS[facility]IATRY [facility] Oct 28, 2019 01:00 PM [facility] Nov 11, 2019 11:30 AM AMBULATORY - NONE [facility] December 16, 2019 11:30 AM AMBULATORY - PSYCHIATRY [facility] Feb 17, 2020 11:30 AM AMBULATORY - PSYCHIATRY [facility] Social History: Smoking Status (Most [...] 03:42 PM LIFETIME NON-TOBACCO USER [place] [facility] Encounter Notes: All associated encounter notes This section contains the clinical notes associated to the Encounter. Date/Time Encounter Note(s) Provider Source Sep 02, 2019 10:49 AM MENTAL HEALTH OUTPATIENT NOTE: MARKODOROTHEA R[place]DS[place] LOCAL TITLE: Amb Care/Mental Health [facility] STANDARD TITLE: MENTAL HEALTH OUTPATIENT NOTE DATE OF NOTE: SEP 02, 2019@10:49 ENTRY DATE: SEP 02, 2019@10:49:37 AUTHOR: DOROTHEA ZHU EXP COSIGNER: URGENCY: STATUS: COMPLETED MENTAL HEALTH FOLLOW UP VISIT PRO SELENE NOTE Date and time of visit: SEP 02, 2019 1055 Location of : [facility] IDENTIFICATION: Name: SUSU TREVIÑO JR Age: 53 Service connection: SERVICE CONNECT ED % - 80 Primary Care Provider: BRIDGETTE BRO PACT F *WH* CHIEF COMPLAINT: Follow-up for depression, anxiety HISTORY OF PRESENT ILLNESS: Mr. Treviño reports his job [employer] s been going pretty well. Working in an environemnt with a lot of other people made him realize he d oesn't like being around that many people. Most of the time he works on a [employer] in one corner of the building so gets left alone. He has really noti elias this the past couple of months. He talked about differences in how he views work vs how his work place runs. He recognizes he doesn't like confrontation. He feels content with what bridget watkins is doing, feels he is accomplishing something and likes his job. Things are going well at home. No episodes of deep depression in the interim, n o abnormal ups and downs. Side-effects to psychiatric medications: none Review of Systems: Psychiatric: per HPI. Constitutional: Sleep - normal. Ener gy - good, no spells of being tired in the afternoon recently. Appetite - good. MENTAL HEALTH HISTORY: SUBSTANCE USE HISTORY: Recent Use: Alcohol: rare drink Tobacco: none Illicit Substances: none [place] SUICIDE SCREEN: Questions applicable to the period [...] Edgar Schlatter Disease 7. Hyperlipidemia (SNOMED CT [id number]) 8. Environmental Allergies 9. GERD - Gastro-esophageal reflux disease (SNO MED CT [id number]) RECENT LABORATORY STUDIES: Labs (14 Days) No [...] VA medications and non-VA medication wi th [place]. Were the medications correct and being taken trudi ropriately? ALLERGIES: SIMVASTATIN MENTAL STATUS EXAM: Appearance: casually dressed and groomed, appear s stated age Behavior: cooperative, engageable, good eye con tact, talkative, smiling appropriately Speech: normal rate and volume, clear, coherent , normal prosody Language: fluent Mood/Affect: good; euthymic, full, appropriat e, mood congruent affect Thought Processes: linear, logical, goal-direct ed Associations: no loosening Thought Content: no evidence of hallucinations or delusions, denies current suicidal or violent/homicidal ideation Insight: good Judgment: good Gait: normal Fund of Knowledge: appropriate Attention/Concentration: Alert and attentive Summary and Diagnostic Impression/Formulation: Mr. Treviño is a 53 yo vet with recurrent major de pression (full remission), anxiety. He continues to do well and be stable. TREATMENT PLAN: - cont fluoxetine as above Follow-up appointment(s): [facility] October 27 - 11:00 The patient has this account underwriter's contact informatio n as well as the emergency contact information. /es/ Dorothea Zhu MD Psychiatrist Signed: 09/02/2019 11:07
--- OUTSIDE RECORDS SUMMARY | 2020-07-05 07:47 | XMS_ITS | Encounter Summary ---
:1965 Author Organization [facility] Address [address] [place] [id number] Care Team Providers Name Role Phone BRIDGETTE [...] Number Bejarano ANTH HIGH ADP Apr 19, [id number] [phone] MILAGRO TREVIÑO PATIENT BCBS OF DEDUCTIBL TOTAL 2018 14 [id number] K NEW E HEALTH [facility] PLAN E BCBS OF [place] HIGH ADP Apr 19, [id number] [phone] MLIAGRO TREVIÑO PATIENT (BLUECARD) DEDUCTIBL TOTAL 2019 14 [id number] K E HEALTH [employer] PLAN E W/HEALTH SAVINGS ACCOUNT INGENIO RX PRESCRIPT [facility] Apr 19, [id number] [phone] MILAGRO COLLADO PATIENT ION (PCN: [id number] 6 K WK) Selected Encounter This section includes the information on record at [place] for the Encounter. Date/Time Encounter Type Encounter Reason Provider Source Description Oct 06, 2019 OFFICE/OUTPATIE PRIMARY ICD-10-CM J06.9 ANJANA CASAREZ 02:45 PM NT VISIT EST CARE/MEDICINE Acute upper P respiratory infection, unspecified with Provider Comments: Acute upper Respiratory Infection, unspecified IHE Encounter Template Text not used by [place] Assessments - Encounter Diagnoses This section includes the primary and secondary diagnoses documented forthe Encounter. Date/Time Primary/Secondary Diagnosis Name Provider Source Diagnosis Oct 21, 2019 PRIMARY Acute [facility] PM respiratory P [facility]OC infection, unspecified Oct 21, 2019 PRIMARY Acute upper RODIER,ANJANA [facility] 07:46 PM respiratory P CBOC infection, unspecified Oct 21, 2019 PRIMARY Acute upper [facility] 07:46 PM respiratory P [facility]OC infection, unspecified Oct 21, 2019 SECONDARY Cough RODIER,ANJANA [facility] 07:46 PM P CBOC Oct 21, 2019 SECONDARY Cough RODIERANJANA [facility] 07:46 PM P CBOC Plan of Treatment: Future Appointments (+ 6 months) and Future Tests (+/- 45 days) The Plan of Treatment section includes future care activities for the patient from all [place] treatment facilities. This section includes future appointments and future orders which are active, pending or scheduled.Future Appointments This section includes appointments that were scheduled to occur 6 months from the date of the Encounter, up to a maximum of 20 appointments. The data comes from all [facility]. Appointment Date/Time Appointment Type Appointment Facili ty Name Oct 28, 2019 11:00 AM AMBULATORY - PS[facility]ATRY [facility] Oct 28, 2019 01:00 PM AMBULATORY - MEDICINE [facility] [facility] Nov 11, 2019 11:30 AM AMBULATORY - NONE [facility] December 16, 2019 11:30 AM AMBULATORY - PSYCHIATRY [facility] Feb 17, 2020 11:30 AM AMBULATORY - PSYCHIATRY [facility] Social History: Smoking Status (Most current) and Tobacco Use (All prior to encounter date) This section includes the most current, and the historical, smoking and tobacco-related health factors from the [place] facility where the Encounter took place.Current Smoking Status This section includes the most current smoking, or tobacco-related health factor, from the [place] facility where the Encounter took place. Date/Time Current Smoking Status Comment Facility Jun 06, 2019 01:09 PM VA-TOBACCO NEVER USED [facility] Tobacco Use History This section includes a history of the smoking, or tobacco-related health factors, that were collected on or before the date of the Encounter. The data comes from the [place] facility where the Encounter took place. Date/Time Smoking Status/Tobacco Use Comment Facil ity Jun 30, 2018 02:13 PM VA-TOBACCO NEVER USED [facility] Jun 29, 2015 08:32 AM LIFETIME NON-TOBACCO USER [facility] Sep 09, 2005 03:14 PM QUIT TOBACCO USE > [address] [facility] quit at age 22 Encounter Notes: All associated encounter notes This section contains the clinical notes associated to the Encounter. Date/Time Encounter Note(s) Provider Source Oct 06, 2019 03:30 PM LETTERS: ANJANA CASAREZ [facility] LOCAL TITLE: Letter to Patient - [facility] TITLE: LETTERS DATE OF NOTE: OCT 06, 2019@15:30 ENTRY DATE: OCT 06, 2019@15:30:33 AUTHOR: ANJANA CASAREZ EXP COSIGNER: URGENCY: STATUS: COMPLETED [facility] [address] [place] [address] OCT 06, 2019 MR. SUSU TREVIÑO [address], [place] [address] Dear Mr. Treviño and to whom this may concern: You have not meet the screen ing criteria to be tested for COVID 19; and have not met the criteria to be quarantined for exposure to COVID 19. You are excused from work due to illness and fito ared to return to work on 10/10/2019 as long as no symptoms of illness. Please don't hesitate to call if you have any qu estions or concerns, . Sincerely, ANJANA CASAREZ, WILLIE, DRIVERS LICENSE EXAMINER-BC NURSE PRACTITIONER [facility] Oct 06, 2019 03:16 PM NONVA MEDICATION MGT NOTE: ANJANA CASAREZ [facility] LOCAL TITLE: Prescription Slip for NonVA Pharma cy STANDARD TITLE: NONVA MEDICATION MGT NOTE DATE OF NOTE: OCT 06, 2019@15:16 ENTRY DATE: OCT 06, 2019@15:17:05 AUTHOR: ANJANA CASAREZ EXP COSIGNER: URGENCY: STATUS: COMPLETED [facility] [address] [place] [address] Patient: Date: OCT 05 SUSU TREVIÑO [address], [place] [address] :Oct Medication: ALBUTEROL INHALER 90 MCG/INH Quantity: 1 Si PUFFS EVERY 4-6 HOURS PRN COUGH/WH EEZE Refills: 0 Substitution Permitted NPI # [id number] THANG # Sep /es/ Date ANJANA CASAREZ DNP, DRIVERS LICENSE EXAMINER- NURSE PRACTITIONER Oct 06, 2019 02:46 PM PRIMARY CARE TELEPHONE ENCOUNTER NOTE: ANJANA NAVARRETE [facility] LOCAL TITLE: Telephone Note-Primary Care STANDARD TITLE: PRIMARY CARE TELEPHONE ENCOUNTER NOTE DATE OF NOTE: OCT 06, 2019@14:46 ENTRY DATE: OCT 06, 2019@14:47:05 AUTHOR: ANJANA CASAREZ EXP COSIGNER: URGENCY: STATUS: COMPLETED Telephone Note-Primary Care Has ADDENDA * Pt states he has been moderately sick for the pa st 5-6 weeks from what he thinks is the flu. He statse he is not feeling well with a sore thr oat and scratchy throat 1. Pt states he has not had a fever he states he has had a sore throat, laryngitis a nd a cough. Headaches states his glands are not swollen 2. + cough-has dry cough, denies sob 3. no known exposures Pt. states he was instructed by his work to [facility] stay home for 14days or get tested for COVED 19. Pt informed that he does not meet the criteria f or testing. Pt states he gets the same illness almost every year. Had asthma as a child. Plan: Pt was asked if he felt sick enough that he need ed to be evaluated in clinic with his response as no (negative). will treat cough/occ wheeze as bronchitis/RAD will meat pickler rx for albuterol inhaler/provi kulwant will instruct in proper use to will write note to clear patient to work at 0600 on 10/10/2019 Pt advised that he may not return to work on Thu if he is not completely well. Pt verbalized understanding TC to return patient request for either COVID 19 testing or work note with [er Cell phone: Plan: will mail clearance from work. /caridad CASAREZ DNP, KIMBERLY-ROHINI NURSE PRACTITIONER Signed: 10/06/2019 15:16 10/06/2019 ADDENDUM STATUS: COMPLETED pt also instructed to cont with the usual OTC me ds and care of URI -increase fluids -otc cough/cold medicine per pkg instruction -warm salt water gargles instructed on proper use of inhaler to inst ruct patient. /caridad CASAREZ DNP, KIMBERLY-ROHINI NURSE PRACTITIONER Signed: 10/06/2019 15:46 10/21/2019 ADDENDUM STATUS: COMPLETED time spent on phone with patient: 15min /caridad CASAREZ DNP, KIMBERLY-ROHINI NURSE PRACTITIONER Signed: 10/21/2019 19:46
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
[2020-07-05] MEDS: Normal Saline Flush 10 ML SYR IVP (08:00)
--- NOTE | 2020-07-05 08:06 | ED.GENADUL_ITS ---
Discharge Plan Disposition Patient Disposition: HOME Condition: Good Discharge Details Clinical Impression: Rib pain on right side, Contusion of rib on right side Primary Care Provider: [place] [place] ED Provider: Misael Fregoso Home Meds and New Rx's Prescriptions: New lidocaine [Lidoderm] 1 PATCH patch 1 patch Topical Q24H Qty: 4 RF: 0 Continued loratadine-pseudoephedrine [Claritin-D 24 Hour] 1 EACH tablet extended release 24 hr 10 tab DIRECTED RF: 0 omeprazole 20 MG capsule,delayed release(DR/EC) 20 mg PO BID RF: 0 fluoxetine [Prozac] 40 mg Capsule 40 mg PO DAILY RF: 0 atorvastatin 10 mg Tablet 10 mg PO DAILY RF: 0 buspirone 10 mg Tablet 10 mg PO BID RF: 0 Discharge Instructions Instructions: Rib Contusion (ED) Additional Instructions: At this time there is no evidence of new rib fracture however you do have some old rib fractures which are likely causing your pain. Please take 800 mg of ibuprofen every 6 hours and 1000 mg of Tylenol every 6 hours to help with the pain. Please use the Lidoderm patches as directed, if your insurance does not cover this prescription you can get [id number] Lidoderm patches at a slightly lower concentration but still work well. Use heat as needed for pain in your back. If your pain continues, and you would like the rib blocks that we discussed please return for reassessment. If you notice any worsening of your symptoms, or any new symptoms such as vomiting, diarrhea, fever, chills, shortness of breath, chest pain, numbness, weakness, or fainting , please return immediately to the emergency department for reevaluation. Please follow up with your primary care provider as soon as possible for reassessment and reevaluation. As always, it was a pleasure participating in your medical care today. 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 No LOC and normal neuro exam. No mid-line spine pain. Right posterior back/rib pain. Cannot take deep breath. Sats and vitals good. Plan IV with pain meds, labs, CT of chest/abd/pelvis. Sign out to oncoming ED provider. <Misael Fregoso - Last Filed: 07/05/20 10:52> Patient was signed out to me by my colleague Dr. Geol, please refer to his HPI assessment and plan physical exam. Time of signout we are pending labs and CT results. CT results have returned, no evidence of acute process, he does have a renal cyst and hiatal hernia which he is well aware of. He does have 2 old rib fractures at ribs 7 and 8 on the right which seems to be near the location of his pain. No evidence of acute fracture though. Labs are unremarkable, he is not on any blood thinners. Urinalysis is unremarkable aside for a very small trace amount of RBCs, not indicative of hematuria or significant etiology. On reassessment after Tylenol Toradol and Lidoderm patch the patient is feeling much better and would like to go home. I did offer rib blocks which she has declined at this time. Repeat neurologic and physical exam are notably unremarkable, vital signs are stable. Signs and symptoms are clinically consistent with rib contusion, muscle spasm/intercostal spasm. Patient will be discharged home, recommend close follow-up with PCP. Discussed red flags which to return. I have extensively reviewed the treatment plan and discharge instructions with the patient. I have addressed all patient concerns at this time. The patient was made aware of what symptoms to monitor for that would warrant a return to the emergency department. Discussed the plan with the patient, they demonstrate verbal understanding and agreement with our assessment and plan at this time. HPI <Blayne Goel MD - Last Filed: 07/05/20 20:25> General Mode of arrival: EMS . Date/Time Provider Initiated Documentation: 07/05/20 07:18 . Limitations to Documentation: no limitations . Information obtained by: patient, RN notes reviewed and old records reviewed . HPI Narrative: Patient presents to ED with right rib/back pain after slipping getting into his oil truck and falling to the ground. Denies head strike or LOC. Denies neck pain. Hurts in right back to take deep breath. No abdominal pain. No neurologic symptoms. Unable to get up on own due to pain. EMS called and transported patient here. Related Data Home Medications Medication Instructions Recorded Confirmed loratadine-pseudoephedrine 10 tab DIRECTED 10/04/13 07/05/20 [Claritin-D 24 Hour] omeprazole 20 mg PO BID 10/04/13 07/05/20 atorvastatin 10 mg PO DAILY 07/05/20 07/05/20 buspirone 10 mg PO BID 07/05/20 07/05/20 fluoxetine [Prozac] 40 mg PO DAILY 07/05/20 07/05/20 lidocaine [Lidoderm] 1 patch TOPICAL Q24H #4 ea 07/05/20 Previous Rx's Medication Instructions Recorded lidocaine [Lidoderm] 1 patch TOPICAL Q24H #4 ea 07/05/20 Allergies Allergy/AdvReac Type Severity Reaction Status Date / Time No Known Allergies Allergy Unverified 07/05/20 07:25 General Stated Complaint: Trauma [place]: 2 Review of Systems <Blayne Goel MD - Last Filed: 07/05/20 20:25> Narrative: As documented in HPI otherwise negative as below. Const: no fever, chills, weakness Resp: no cough, SOB, pleuritic pain CV: no CP, diaphoresis, edema, syncope GI: no abdominal pain, nausea, vomiting, diarrhea Neuro: no headache, numbness, focal weakness, confusion PFSH <Blayne Goel MD - Last Filed: 07/05/20 20:25> Medical History Depression GERD (gastroesophageal reflux disease) Hypercholesterolemia Surgical History S/P arthroscopic knee surgery Social History Smoking/Tobacco Use Status: Never Smoking risk assessment performed?: Yes Alcohol Intake: never Drug use: Never Exam <Blayne Goel MD - Last Filed: 07/05/20 20:25> Narrative Exam Narrative: Const: Obese male in NAD. HEENT: NC/AT. Normal facial exam. Eyes: Normal conjunctiva and sclera. Neck: Supple. Trachea midline. No c-spine tenderness. Lungs: Normal respiratory effort. Lungs are clear. No chest wall tenderness. Cor: RRR without murmur/gallop. Good radial pulses. GI: Soft. NT/ND. No guarding or rebound. Back: No bruising. No midline tenderness. Tender to palpation lower right posterior ribs/CVA area. Neuro: GCS 15. A+O x 3. Normal speech, mentation. Cranial nerves II - XII grossly intact. No gross motor or sensory deficit. Ext: No deformity or tenderness. Normal ROM. Skin: Warm and dry without wounds. . Course <Blayne Goel MD - Last Filed: 07/05/20 20:25> Vital Signs Vital signs: Vital Signs Temperature 97.7 F 07/05/20 07:18 Pulse 88 07/05/20 07:18 Respiratory Rate 18 07/05/20 07:18 Blood Pressure 154/99 H 07/05/20 07:18 Pulse Oximetry 98 07/05/20 07:18 Temperature 97.7 F 07/05/20 07:18 Temperature Source Skin 07/05/20 07:18 Pulse 86 07/05/20 08:01 Pulse 87 07/05/20 08:01 Respiratory Rate 12 07/05/20 08:01 Respiratory Effort Non-Labored 07/05/20 07:34 Respiratory Depth Normal 07/05/20 07:34 Respiratory Pattern Normal 07/05/20 07:34 Blood Pressure 139/91 H 07/05/20 08:01 Blood Pressure Mean 103 07/05/20 08:01 Blood Pressure Position Supine 07/05/20 07:18 Pulse Oximetry 96 07/05/20 08:01 Oxygen Delivery Method Room Air 07/05/20 07:18 Oxygen Flow Rate 0 07/05/20 07:18 Pain Level 9 07/05/20 07:34 Sign Out <Blayne Goel MD - Last Filed: 07/05/20 20:25> Sign Out Data: Sign Out Comment: pending labs and CT Last updated by Blayne Goel MD at 07/05/20 08:15
[2020-07-05] MEDS: Lactated Ringers 1,000 ML 150 ML IV (08:25)
[2020-07-05] MEDS: MORPHine 10 MG/ML VIAL 5 MG IVP (08:28)
[2020-07-05 08:32] LABS: Abs Immature Grans 0.12 10^3/uL (0.0-0.06); Absolute Basophil Count 0.03 10^3/uL (0.0-0.2); Absolute Eosinophil Count 0.23 10^3/uL (0.0-0.7); Absolute Lymphocyte Count 1.16 10^3/uL (1.2-3.4); Absolute Monocyte Count 0.46 10^3/uL (0.1-0.8); Absolute Neutrophil Count 4.44 10^3/uL (1.2-6.7); Basophils % 0.5; Eosinophils % 3.6; HCT 42.8 % (40.0-50.0); HGB 13.8 g/dL (13.5-17.5); Immature Grans % 1.9; MCH 29.1 pg (27.0-33.0); MCHC 32.2 % (32.0-36.0); MCV 90.1 fL (80-95); MPV 10.1 fL (8.0-11.0); Monocytes % 7.1; Neutrophils % 68.9; Nucleated RBC 0 %; Platelet Count 266 10^3/uL (130-400); RBC 4.75 10^6/uL (4.36-5.78); RDW 12.2 % (11.8-14.1); RDW-SD 39.8 fL; WBC 6.44 10^3/uL (4.4-10.8)
[2020-07-05 08:51] LABS: ALT 36 U/L (16-63); AST 17 U/L (15-37); Albumin 3.9 g/dL (3.4-5.0); Alkaline Phosphatase 94 U/L (46-116); Anion Gap 6.5 mmol/L (3-11); BUN 22 mg/dL (7-18); Bilirubin, Total 0.3 mg/dL (0.2-1.0); CO2 30.5 mmol/L (21.0-32.0); CREATININE 1.13 mg/dL (0.70-1.30); Calcium 8.9 mg/dL (8.5-10.1); Chloride 103 mmol/L (98-107); Glucose 104 mg/dL (74-106); Potassium 4.2 mmol/L (3.5-5.1); Sodium 140 mmol/L (136-145); Total Protein 7.4 g/dL (6.4-8.2)
[2020-07-05] MEDS: Normal Saline - Diluent 50 ML VIAL IV (09:13)
--- NOTE | 2020-07-05 09:29 | DI.CT_ITS ---
EXAM: CT CHEST/ABD/PEL W CLINICAL HISTORY: trauma. TECHNIQUE: Imaging Protocol: Axial computed tomography images with coronal and sagittal reformatted images were created and reviewed CONTRAST MATERIAL: Intravenous: Omnipaque 350 Contrast volume:100 ml Oral: None COMPARISON: No exams were available for comparison FINDINGS: CHEST: LUNGS: There is mild atelectasis in both lung bases. No confluent infiltrates nor pleural effusions and no pneumothorax. No significant focal findings in the trachea and mainstem bronchi. Large retro cardiac hiatal hernia is noted.. MEDIASTINUM: There is no hilar nor mediastinal adenopathy. Visualized thyroid unremarkable. CARDIAC: Heart size is normal. There is no pericardial effusion.Caliber of the thoracic aorta is wit hin normal limits. OSSEOUS: No significant osseous lesions.Healed right 7th and 8th rib fractures are noted. No acute r ib fractures evident.. ABDOMEN: There is no ascites. LIVER: There is mild steatosis. There is no evidence of hepatic laceration. There is a subcapsular lesion in the medial right hepatic lobe measuring 3 centimetres by 1 point centimetres. This is prob ably a hemangioma.. No other focal hepatic findings. GALLBLADDER/BILIARY: No obvious gallbladder pathology. CBD is not dilated. PANCREAS: No evidence of pancreatic mass nor dilatation of the pancreatic duct. SPLEEN: Spleen is not enlarged. There is no splenic laceration. There are no intrasplenic lesions. Splenic and portal veins are patent. ADRENALS: There are no significant adrenal masses. KIDNEYS: There is a tiny nonobstructive 2 millimeter calculus in the right kidney. There is also a c yst in the right kidney measuring 6 by 5 centimeters located in the lower pole. No hydronephrosis. No solid mass in the right kidney. Opposite-left kidney exhibits a small finding in the most superio r aspect superior pole measuring 12 x 12 millimeters which is slightly denser than typical cyst. The re is also 1 millimeter nonobstructive calculus at the midpole level of the left kidney. Renal veins are patent.. ABDOMINAL AORTA: Abdominal aorta is not enlarged. There is no para-aortic adenopathy but there is so me streaking in the fat around the aorta. No evidence of obvious aortic trauma and the aortoiliac se gments are patent and nonaneurysmal. ABDOMINAL WALL/GI: Fat containing bilateral inguinal hernias. No bowel loops within the hernia sacs. No bowel obstruction. No evidence of bowel wall hematoma nor mesenteric hematoma. Bone windows reveal a healed right 7th and 8th rib fractures. No acute rib fractures evident. No ri b lesions. No scapular fractures. No pelvic or hip fractures evident. PELVIS: LYMPH NODES: There is no intrapelvic nor inguinal adenopathy. GI: No evidence of appendicitis.No evidence of sigmoid diverticulitis. URINARY BLADDER: No calculi nor masses evident REPRODUCTIVE: Prostate not enlarged. OSSEOUS: No hip or pelvic fractures identified IMPRESSION: 1. There are healed fractures of the right 7th and 8th ribs. No obvious acute rib fractures nor lung contusion or pleural effusion or pneumothorax. 2. Large hiatal hernia noted. Some atelectasis in both lung bases but no infiltrates. No pleural ef fusions 3. Six centimetres cyst in the lower pole right kidney. Nephrolithiasis both kidneys, nonobstructive . Addition, there is a small 12 millimeter nodule in the superior pole of the left kidney is probabl y an exophytic cyst which should be verified with ultrasound given the it appears slightly more dense than a typical cyst 4. No evidence of bowel wall nor mesenteric hematoma nor organ lacerations, given the trauma history here. No ascites. RADIATION DOSE DELIVERED: 2,386.04mGy.cm Total DLP 2,386.04mGy.cm Total DLP DATA REPOSITORY: All CT scans at this facility are submitted to the National Radiology Data Registry (NRDR) Dose Index Registry (DIR) with the [employer] ([employer]). RADIATION OPTIMIZATION: All CT scans at this facility use at least one of these dose optimization te chniques: automated exposure control; mA and/or kV adjustment per patient size (includes targeted exa ms where dose is matched to clinical indication); or iterative reconstruction.
[2020-07-05] MEDS: Ketorolac 30 MG/ML VIAL IVP (10:00)
[2020-07-05 10:02] LABS: Bilirubin Negative (Negative); Blood Trace-intact (Negative); Clarity Clear (Clear); Glucose Negative (Negative); Ketones Negative (Negative); Leukocyte Esterase Negative (Negative); Nitrite Negative (Negative); Urobilinogen 0.2 EU/dL (Up TO 0.2); pH 7.5 (5-8)
[2020-07-05] MEDS: Acetaminophen 500 MG TAB 1000 MG PO (10:08)
[2020-07-05] MEDS: Lidocaine 5% Patch 1 PATCH TP (10:09)
[2020-07-05 10:18] LABS: Bacteria Negative HPF (Negative); C & S Indicated? No; Casts Negative LPF (Negative); Crystals Negative HPF (Negative); Epithelial Cells Negative HPF (Negative); Mucus Trace (Negative); WBC 0-2 HPF (0-5)
== END 2020-07-05 11:39 | disposition home or self-care (01) ==
PROVIDERS: Emergency Medicine; Emergency Provider Student in an Organized Health Care Education/Training Program
DX: S20.221A Contusion of right back wall of thorax, initial encounter (principal); V68.0XXA Driver of heavy transport vehicle injured in noncollision transport accident in nontraffic accident, initial encounter; Z87.81 Personal history of (healed) traumatic fracture
CPT/HCPCS: 36415; 36416; 74177; 80053; 82962; 96361; 96374; 96375; 99285; 71260; 81003; 81015; 85025; 99284; J1885; J2270